=== PATIENT | female | born 1935 | race Hispanic/Latino ===

== ENCOUNTER 2016-06-16 09:29 | Day surgery (SDC) | payer MEDICARE ==
[2016-06-15 10:22] VITALS: BMI 28.7
[2016-06-15 13:50] VITALS: RESP 18
--- NOTE | 2016-06-16 10:58 | CP.SDSHP ---
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 Previous Surgical History: hallux abductovalgus repair (fursion) right 1st metatarophalangeal joint. stents, bypass - Allergies Allergies: Allergies No Known Allergies Allergy (Verified 06/15/16 10:22) - Physical Exam Vital Signs: Vital Signs 06/16/16 06/16/16 10:10 10:16 Temperature 98.5 F Pulse Rate 73 73 Respiratory 18 Rate Blood Pressure 131/72 O2 Sat by Pulse 98 Oximetry Mental Status: Alert & Oriented x3 Neuro: WNL - {Optional Preform as Required} Integument: Other (hyperkeratotic lesion submet 5 and 1 of right foot) Ortho: Other (pain to palpation of dorsal and medial aspect of right 1st MTPJ, tenderness to palpation of plantar and lateral aspect 5th metatarsal head) - Impression Impression: Patient seen and evaluated in SDS. Medical clearance in chart. NPO status confirmed. Pt is for right foot surgery today with Dr. Phillips Short Stay Discharge - Short Stay Discharge Admitting Diagnosis/Reason for Visit: M21.6X1 M21.621 M77.8 Disposition: HOME/ ROUTINE Referrals: Leland Kimbrough MD [Primary Care Provider] - Feroz Phillips MD [Staff Provider] - Additional Instructions (Diet, Activity): -Rest, ice and elevate the right foot today. -Keep dressing to foot clean, dry, intact, use cast bag over dressing for bathing/showering -Take prescribed medications as directed -PWB to heel with walker -Pt is advised to monitor for any signs of infection -Pt to follow up with Dr. Phillips at the office next week Progress Note/Discharge Note with Instructions: -VSS, neurovascular status intact right foot - (+) void, (+) appetite -dressing to right foot appears clean dry and intact -PWB to heel with rolling walker -Follow up with Dr. Phillips in office next week
--- NOTE | 2016-06-16 11:07 | CP.PCM.PN ---
Subjective - Date & Time of Evaluation Date of Evaluation: 06/16/16 Time of Evaluation: 10:45 - Subjective Subjective: 81 yo female patient seen and evaluated in [facility] this morning for pre-op evaluation. Patient is accompanied with family member. Patient says she has been having quite a bit of pain to the right foot. Says she had bunion surgery 4 years ago and now has pain due to the plate. Also has noticed a bunion formation of the 5th toe, says this is painful when ambulating and gets calluses. Rates the pain as a 5/10 at its worst when ambulating. Takes Tylenol for pain which she says helps somewhat. Has a walker at home. Denies anything to eat or drink since midnight. Denies any other problems at this time. PMH: arrythmia (has pacemaker), thyroid disease, arthritis ALL: NKDA Meds: see APR Surg Hx: right bunion surgery 4 years ago, stents, bypass FH: mother (clotting disorder), father ( from stroke) Soc Hx: lives at home with , past smoker (quite 30 years ago), denies etoh, denies illicit drug use Objective - Vital Signs/Intake and Output Vital Signs (last 24 hours): Temp Pulse Resp BP Pulse Ox 98.5 F 73 18 131/72 98 06/16/16 10:10 06/16/16 10:16 06/16/16 10:10 06/16/16 10:10 06/16/16 10:10 - Constitutional Appears: Well, Non-toxic, No Acute Distress - Extremities Exam Additional comments: Bilateral lower extremity exam: VASC- DP pulses palpable 2/4 BL, PT pulses palpable 1/4 BL, skin temp runs warm to cool bl, no pedal edema noted, diffuse varicosities noted to distal legs and lateral ankles bl NEURO- gross pedal sensation is intact BL DERM: no open wounds, there is a hyperkeratotic lesion (IPK) noted sub- metatarsal 1 (right) foot as well as plantar-lateral aspect of the 5th metatarsal head (right), no erythema, no sings infection ORTHO: tenderness to palpation to IPK sub-met 1 (right), tenderness to palpation of plantar and lateral aspect of 5th met head (right), tenderness to palpation medial and dorsal aspect of 1st MTPJ (right), 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 with rigid hammering of left 2nd digit BIOMECHANICAL EXAM: AJ: DF is restricted to 0 degrees past neutral BL STJ: 25 degrees inversion, 15 degrees eversion BL 1st ray: limited DF noted BL (0mm right, 2mm left) 1st MTPJ: absent DF, PF on right side, joint is trackbound on left side Pedal muscle strength: graded as a 5/5 in all directions GAIT EXAM: patient ambulates with walker for balance, antalgic gait noted, decreased mainor, increased angle and base of gait, lack of propulsion on right side and lack of swing phase bl, increased midstance on left side, - Neurological Exam Neurological Exam: Alert, Awake, Oriented x3 - Psychiatric Exam Psychiatric exam: Normal Affect, Normal Mood Assessment and Plan - Assessment and Plan (Free Text) Assessment: 81 yo female patient w/ painful right foot secondary to 1) painful hardware, 2) 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 Phillips -Medical clearance in chart -Pt is to be WBAT with surgical shoe and walker post-op. -She is to f/u w/ Dr. Phillips at the office next week
[2016-06-16] MEDS ORDERED: Lidocaine 1% Inj (20ml) IJ ONE ×2 (11:08→12:05)
[2016-06-16] MEDS ORDERED: ceFAZolin 1 GM in Sodium Chloride 0.9% 100 ML IVPB ONE (11:08)
[2016-06-16] MEDS ORDERED: Bupivacaine 0.5% 50 ML IJ ONE ×3 (11:08→12:22)
[2016-06-16] MEDS ORDERED: Sodium Chloride 0.9% 500 ML IV SCH (11:15)
[2016-06-16] MEDS ORDERED: Midazolam 2 MG/2 ML VIAL ONE ×3 (11:19→13:07)
[2016-06-16] MEDS ORDERED: Propofol 10 mg/ml Inj (20 ML) ONE (11:19)
[2016-06-16] MEDS ORDERED: Lidocaine 1% Inj (20ml) ONE (11:26)
[2016-06-16] MEDS ORDERED: Bupivacaine 0.25%-Epinephrine 1:200,000 (30 ml) Inj ONE (11:27)
[2016-06-16] MEDS ORDERED: Bupivacaine 0.5% Inj(30mL) ONE (11:27)
[2016-06-16] MEDS ORDERED: Etomidate 20 mg/10ml Inj IV ONE (11:44)
[2016-06-16] MEDS ORDERED: Lactated Ringer's 1,000 ML IV ONE (11:50)
[2016-06-16] MEDS ORDERED: Dexamethasone 4 mg/1 ml ONE (13:38)
[2016-06-16] MEDS ORDERED: Dexamethasone 4 mg/1 ml IM ONE (13:40)
[2016-06-16] MEDS ORDERED: Lactated Ringer's 500 ML IV ONE (14:05)
--- NOTE | 2016-06-16 14:12 | PCM.SURG1 ---
Surgeon's Initial Post Op Note - Surgeon's Notes Surgeon: Dr. Phillips Voice Network Administrator: Dr. Ana Cristina Ball Type of Anesthesia: MAC, Local Anesthesia Administered By: Dr. Bah Pre-Operative Diagnosis: Right foot painful hardware, painful exostosis of 1st metatarsal head, tailor's bunion deformity, and painful scar tissue to plantar aspect of 1st met head Operative Findings: Materials: 2.0 x 10mm cortical screws. 3-0 Vicryl. 4-0 Monocryl Post-Operative Diagnosis: same Operation Performed: Right foot removal of painful hardware, 5th metatarsal osteotomy with screws, resection of 1st metatarsal head, excision of painful scar tissue from plantar 1st met head Specimen/Specimens Removed: 6 x screws and 1 x plate from right 1st MTPJ Estimated Blood Loss: EBL {In ML}: 3 Blood Products Given: N/A Drains Used: No Drains Post-Op Condition: Good Date of Surgery/Procedure: 06/16/16 Time of Surgery/Procedure: 11:40
[2016-06-16] MEDS ORDERED: Oxycodone/Acetaminophen 5/325 mg Tab PO PRN ×2 (14:18)
--- NOTE | 2016-06-16 15:11 | RAD ---
PROCEDURE: Right Foot Radiographs. For HISTORY: Right foot surgery COMPARISON: None. FINDINGS: BONES: There is fusion of the 1st MTP joint and screw tracks in the 1st metatarsal and proximal phalanx of the great toe. There are 2 metallic screws in the 5th metatarsal and an old fracture deformity. There is no acute fracture or bone destruction. There is a prominent dorsal calcaneal spur. JOINTS: The remaining joint spaces are preserved. SOFT TISSUES: There is moderate dorsal soft tissue swelling OTHER FINDINGS: None. IMPRESSION: Old fracture deformity in the 5th metatarsal and 2 metallic screws in the 5th metatarsal. Moderate dorsal soft tissue swelling.
[2016-06-16 17:48] VITALS: BP 117/63; PULSE 65; TEMP 98.4; O2SAT 96
--- NOTE | 2016-06-18 21:04 | OP ---
PROCEDURE DATE: 06/16/2016 SURGEON: Dr. Phillips COAL DUMPING EQUIPMENT OPERATOR: Dr. Ball, PGY-1 STUDENT DEVELOPMENT ADVISOR: Dr. Bah ANESTHESIA: General Mask and local. PREOPERATIVE DIAGNOSES: 1. Right foot painful hardware. 2. Right foot painful scar tissue to plantar aspect of first metatarsal head. 3. Right foot painful plantar exostosis of first metatarsal head. 4. Right foot painful tailor's bunion. POSTOPERATIVE DIAGNOSES: 1. Right foot painful hardware. 2. Right foot painful scar tissue to plantar aspect of first metatarsal head. 3. Right foot painful plantar exostosis of first metatarsal head. 4. Right foot painful tailor's bunion. NAME OF PROCEDURE: 1. Right foot removal of painful hardware. 2. Right foot excision of scar tissue from plantar aspect of first metatarsal head. 3. Right foot resection of first metatarsal head. 4. Right foot fifth metatarsal Eyad osteotomy. INDICATIONS: The patient is a 81-year-old female patient with the above diagnosis. The patient has exhausted conservative treatment at this time and now requests surgical intervention. The patient signed the consent after careful explanation of risks, benefits, complication and alternatives for surgical procedure. No guarantees were given nor implied. One gram of Ancef IV was given to the patient half hour prior to the procedure. N.p.o. status was confirmed prior to taking patient to the OR. PREPARATION: The patient was brought to the operating room table and placed on the operating room table in supine position. A well-padded pneumatic ankle tourniquet was placed to patient's right ankle. After induction of general anesthesia, the patient received a total of 19 mL of 1:1 mixture of 1% lidocaine plain and 0.5% Marcaine plain in a local block fashion to the right ankle. Once local anesthesia was achieved, the right lower extremity was then prepped and draped in usual sterile manner. Esmarch was utilized to exsanguinate the patient's right foot. Pneumatic ankle tourniquet was then inflated to 250 mmHg and the procedure began. PROCEDURE: 1. Right foot removal of painful hardware. Attention was directed to the dorsal aspect of the right first MTPJ. Exact location of painful metal plate was identified by palpation of the prominent plate. An approximately 5 cm longitudinal incision was made along the length of the plate with a #15 blade. The incision was deepened through the subcutaneous tissues using sharp and blunt dissection all the way down to the plate and bone. Care was taken to identify and retract all vital neurovascular structures. The plate and the screws were visualized through the incision. Using a proper Arthrex cannulated star shaped screwdriver, the screws were then removed from the right first MTPJ. The plate was then removed from the right first MTPJ utilizing a Auxvasse elevator and a hemostat. The wound was then flushed with a copious amount of sterile normal saline solution. The subcutaneous tissue of the incision site was then reapproximated and coapted utilizing #3-0 Vicryl. The skin was then reapproximated and coapted using 4-0 Monocryl with running suture technique. 2. Right foot excision of scar tissue from plantar aspect of first metatarsal head. Attention was then directed to the plantar aspect of the right first metatarsal head where there is a hyperkeratotic lesion measuring about 0.5 cm in diameter. At this point, a #15 blade was used to make elliptical incision on the margin of the lesion plantar. Using a brown adson, the lesion was lifted and deeper incision was made using the blade. This hyperkeratotic lesion was then removed from the plantar aspect of the right foot first metatarsal head and was passed from the operative field to the sterile Pearl stand. 3. Right foot resection of first metatarsal head. Once the excision of the scar tissue was done, prominent exostosis of the plantar lateral aspect of the right first metatarsal head was palpated through the plantar opening where the scar tissue was removed from. The incision was deepened through the subcutaneous tissues using sharp and blunt dissection all the way down to the bone. Care was taken to identify and retract all vital neurovascular structures. Once the prominent exostosis of right first metatarsal head was exposed through the incision, a rongeur was used to snip off the prominent exostosis from the plantar lateral aspect of the first metatarsal head. The resected bony exostosis was then passed from the operative field to sterile Pearl stand. The wound was then flushed with copious amount of sterile normal saline solution. The subcutaneous tissue of the incision site was then reapproximated and coapted utilizing 3-0 Vicryl. The skin was then reapproximated and coapted utilizing 4-0 Prolene with simple suture technique. 4. Right foot fifth metatarsal Eyad osteotomy. Attention was then directed to the dorsal aspect of the fifth metatarsal of the right foot. Utilizing a #15 blade, approximately a 5 cm longitudinal incision was made on the dorsal aspect of the right foot fifth metatarsal. The incision was deepened through the subcutaneous tissue with care being taken to identify and retract all vital neurovascular structures. All bleeders were cauterized and ligated as necessary. At this time, a linear periosteal and capsular incision was made overlying the fifth metatarsal of the right foot. The periosteal and capsular structures were then carefully dissected free of their osseous attachments and reflected medially and laterally, thus exposing the head and shaft of the fifth metatarsal. Once the head of the right fifth metatarsal head was exposed, it was noted that the lateral aspect of the fifth metatarsal was already resected from a previous surgery. Next, utilizing a sagittal saw, a dorsal distal to plantar proximal osteotomy was created in the distal one-half of the fifth metatarsal diaphysis. Upon completion of the osteotomy, the capital fragment was distracted and shifted medially into a corrected position and held in place utilizing a bone clamp. Next, two 2.0 x 10 mm cortical screws were inserted into their places across the osteotomy site with excellent compression noted. The remaining bone clamp was removed. Attention was then directed to the remaining lateral bone shelf which was resected utilizing the sagittal bone saw. All rough edges were smoothed down with a hand rasp. The wound was then flushed with copious amounts of sterile normal saline. The periosteal and capsular structures were reapproximated and coapted utilizing 3-0 Vicryl. The subcuticular tissues were then reapproximated and coapted utilizing 4-0 Vicryl. The subcuticular was then reapproximated and coapted using 4-0 Monocryl in a running suture technique. Right foot surgical sites were injected with total of 10 mL of 0.5% Marcaine plain and 3 mL of dexamethasone phosphate. Right foot was dressed with Steri- Strips, DSD and Tensoplast. Pneumatic ankle tourniquet was then deflated and prompt hyperemic response was noted to all digits of the right foot. The attending was present the entire case. POSTOPERATIVE CONDITION: The patient tolerated the anesthesia and procedure well and was escorted to the recovery room with vital signs stable and neurovascular status intact to the right foot. The patient will be nonweightbearing in surgical shoe with crutches and follow up with Dr. Phillips. ALIREZA BALL DPM Feroz Phillips DPM cc: [id number] TT: 06/18/2016 21:03:37 sn MTDD
== END 2016-06-16 18:11 | disposition home or self-care (01) ==
LOC: H.OPSURG 09:29
PROVIDERS: ATTEND Podiatrist
DX: M21.6X1 Other acquired deformities of right foot (principal); M21.621 Bunionette of right foot; M77.8 Other enthesopathies, not elsewhere classified; I48.91 Unspecified atrial fibrillation; I25.10 Atherosclerotic heart disease of native coronary artery without angina pectoris; I50.9 Heart failure, unspecified; E78.5 Hyperlipidemia, unspecified; I11.0 Hypertensive heart disease with heart failure; I25.2 Old myocardial infarction; K21.9 Gastro-esophageal reflux disease without esophagitis; F41.9 Anxiety disorder, unspecified
CPT/HCPCS: 20680; 28173; 73620; 88304; 97116; 97161; C1713; G8978; G8979; G8980; J0690; J1100; J2001; J2250; J2704; J3010; J7030; J7040; J7120

== ENCOUNTER 2016-12-19 09:27 | Inpatient (IN) | payer MEDICARE ==
[2016-12-19 09:34] VITALS: BMI 27.1
--- NOTE | 2016-12-19 10:45 | ED PDOC ---
HPI: General Adult Time Seen by Provider: 12/19/16 10:23 Chief Complaint (Nursing): Lower Extremity Problem/Injury Chief Complaint (Provider): ankle swelling History Per: Patient Additional Complaint(s): 81-year-old female with history of heart disease presents with swelling in ankles that started about one month ago with intermittent shortness of breath. Patient takes 40 mg Lasix daily but still feels short of breath from time to time. Patient was sent to the emergency room by her clinical psychologist Dr. Dickinson. Denies any chest pain, cough, fever or chills. No recent travel. Past Medical History Reviewed: Historical Data, Nursing Documentation, Vital Signs Vital Signs: Last Vital Signs Temp 98.1 F 12/19/16 12:50 Pulse 84 12/19/16 12:50 Resp 18 12/19/16 12:50 BP 104/83 12/19/16 12:50 Pulse Ox 95 12/19/16 12:32 - Medical History PMH: Anxiety, Arthritis, CHF, HTN, Hypercholesterolemia, Hypothyroidism, Osteoporosis - Surgical History Surgical History: CABG (CARDIAC [id number]), Pacemaker (2011) - Family History Family History: States: No Known Family Hx - Social History Current smoker - smoking cessation education provided: No Ex-Smoker (has not smoked in the last 12 months): Yes (quit several years ago) Alcohol: None Drugs: Denies - Home Medications Home Medications: Ambulatory Orders Medication Instructions Recorded ALPRAZolam [Xanax] 0.25 mg PO HS 06/16/16 Aspirin [Ecotrin] 325 mg PO DAILY 06/16/16 Cholecalciferol (Vitamin D3) 2,000 unit PO DAILY 06/16/16 [Vitamin D3] Furosemide [Lasix] 40 mg PO DAILY 06/16/16 Levothyroxine [Synthroid] 75 mcg PO DAILY 06/16/16 PARoxetine [Paxil] 10 mg PO DAILY 06/16/16 Rivaroxaban [Xarelto] 20 mg PO QPM 06/16/16 Valsartan [Diovan] 160 mg PO DAILY 06/16/16 Atorvastatin [Lipitor] 20 mg PO HS 12/19/16 Isosorbide Mononitrate [Ismo] 20 mg PO DAILY 12/19/16 Metoprolol Succinate [Toprol XL] 50 mg PO DAILY 12/19/16 Spironolactone [Aldactone] 50 mg PO DAILY 12/19/16 - Allergies Allergies/Adverse Reactions: Allergies Allergy/AdvReac Type Severity Reaction Status Date / Time No Known Allergies Allergy Verified 06/15/16 10:22 Review of Systems ROS Statement: Except As Marked, All Systems Reviewed And Found Negative Constitutional: Negative for: Fever, Chills, Weakness Cardiovascular: Positive for: Edema (bilateral ankles). Negative for: Chest Pain, Light Headedness Respiratory: Positive for: Shortness of Breath. Negative for: Cough Gastrointestinal: Negative for: Nausea, Vomiting, Abdominal Pain Neurological: Negative for: Headache, Dizziness Physical Exam - Reviewed Nursing Documentation Reviewed: Yes Vital Signs Reviewed: Yes - Physical Exam Appears: Positive for: Well, Non-toxic, No Acute Distress Skin: Negative for: Rash Eye Exam: Positive for: Normal appearance, EOMI, PERRL Cardiovascular/Chest: Positive for: Regular Rate, Rhythm Respiratory: Positive for: Normal Breath Sounds. Negative for: Respiratory Distress Back: Positive for: Normal Inspection Extremity: Positive for: Pedal Edema (1+ pitting edema to bilateral ankles) Neurologic/Psych: Positive for: Alert, Oriented - Laboratory Results Result Diagrams: 12/19/16 10:50 12/19/16 10:50 - ECG O2 Sat by Pulse Oximetry: 95 Pulse Ox Interpretation: Normal - Other Rad Portable chest X-Ray: Interpreted by Me, Viewed By Me X-Ray Interpretation: cardiomegaly and vascular congestion Duplex lower extremities bilaterally X-Ray: Read By Radiologist X-Ray Interpretation: no DVT Medical Decision Making Medical Decision Makin81 year old female with swelling to both ankles and shortness of breath x 1 month Plan: CBC CMP Trop BNP UA IV insertion Bedside chest EKG I spoke with Dr. Dickinson, he states to order dopplers of both legs to rule out DVT and admit patient. Patient is aware of and agrees with admission. K is low at 3.3, 40 meq of Kdur given orally. INITIAL WEIGHT IN ED: 145.8 LBS Disposition - Clinical Impression Clinical Impression: Pedal edema, CHF (congestive heart failure) - Patient ED Disposition Is Patient to be Admitted: Yes - Disposition Disposition Time: 13:15 Condition: FAIR - Pt Status Changed To: Hospital Disposition Of: Inpatient - Admit Certification Admit to Inpatient:: After my assessment, the patient will require hospitalization for at least two midnights. This is because of the severity of symptoms shown, intensity of services needed, and/or the medical risk in this patient being treated as an outpatient. - POA Present On Arrival: None Results - Lab Results Lab Results: 12/19/16 12/19/16 12/19/16 10:50 10:50 10:50 WBC 6.4 RBC 4.29 Hgb 10.9 L Hct 32.8 L MCV 76.6 L MCH 25.4 L MCHC 33.1 RDW 17.4 H Plt Count 177 MPV 9.5 Neut % (Auto) 74.5 Lymph % (Auto) 16.3 L [place] % (Auto) 8.3 Eos % (Auto) 0.6 Baso % (Auto) 0.3 Neut # 4.8 Lymph # 1.0 [place] # 0.5 Eos # 0.0 Baso # 0.0 PT 24.0 H INR 2.1 H APTT 32.2 Sodium 140 Potassium 3.3 L Chloride 101 Carbon Dioxide 27 Anion Gap 15 BUN 26 H Creatinine 1.0 Est GFR ( Amer) > 60 Est GFR (Non-Af Amer) 53 Random Glucose 130 H Calcium 8.9 Total Bilirubin 1.1 AST 43 H ALT 54 H Alkaline Phosphatase 117 Troponin I 0.0300 NT-Pro-B Natriuret Pep 11478 H Total Protein 7.6 Albumin 4.2 Globulin 3.4 Albumin/Globulin Ratio 1.3
[2016-12-19 10:56] LABS: BASO % 0.3 % (0.0-2.0); EOS % 0.6 % (0.0-4.0); HEMATOCRIT 32.8 % (34.0-47.0); LYMPH % 16.3 % (20.0-40.0); MEAN CELL VOLUME 76.6 fl (81.0-99.0); MEAN CORPUSCULAR HEMOGLOBIN 25.4 pg (27.0-31.0); MEAN CORPUSCULAR HGB CONC 33.1 g/dL (33.0-37.0); MEAN PLATELET VOLUME 9.5 fl (7.2-11.7); MONO # 0.5 K/uL (0.0-0.8); MONO % 8.3 % (0.0-10.0); NEUT # 4.8 K/uL (1.8-7.0); NEUT % 74.5 % (50.0-75.0); NRBC % 0.1 % (0.0-0.0); RED CELL DISTRIBUTION WIDTH 17.4 % (11.5-14.5); WHITE BLOOD COUNT 6.4 K/uL (4.8-10.8)
--- NOTE | 2016-12-19 11:04 | RAD ---
HISTORY: swelling in ankles COMPARISON: 06/15/2016. FINDINGS: LUNGS: The lungs are well inflated. There is mild pulmonary venous congestion. No focal consolidation. PLEURA: No significant pleural effusion identified, no pneumothorax apparent. CARDIOVASCULAR: There is mild cardiomegaly. There is stable position of left-sided dual lead transvenous permanent pacing device. Status post CABG. OSSEOUS STRUCTURES: No significant abnormalities. VISUALIZED UPPER ABDOMEN: Normal. OTHER FINDINGS: None. IMPRESSION: Mild cardiomegaly and pulmonary venous congestion. No acute findings.
[2016-12-19 11:09] LABS: ALB/GLOB RATIO 1.3 (1.0-2.1); ALKALINE PHOSPHATASE 117 U/L (38-126); ALT/SGPT 54 U/L (9-52); AST/SGOT 43 U/L (14-36); BILIRUBIN,TOTAL 1.1 mg/dl (0.2-1.3); BLOOD UREA NITROGEN 26 mg/dl (7-17); CALCIUM 8.9 mg/dL (8.4-10.2); CARBON DIOXIDE 27 mmol/L (22-30); CHLORIDE 101 mmol/L (98-107); GFR AFRICAN-AMERICAN > 60; GLUCOSE,RANDOM 130 mg/dL (65-105); POTASSIUM 3.3 MMOL/L (3.6-5.0); SODIUM 140 mmol/l (132-148); TOTAL PROTEIN 7.6 G/DL (6.3-8.2)
[2016-12-19 11:19] LABS: PARTIAL THROMBOPLASTIN TIME 32.2 Seconds (25.6-37.1)
[2016-12-19] MEDS ORDERED: Potassium Chloride 20 mEq ER Tab PO STA (11:19)
[2016-12-19] MEDS ORDERED: Potassium Chloride 20 mEq ER Tab PO ONE (11:33)
--- NOTE | 2016-12-19 11:53 | CARD ---
APPROVED REPORT EKG Measurement Heart [id number] <Conclusion> Wide QRS rhythm with frequent ventricular-paced complexes and fusion complexes Right bundle branch block Possible Anterolateral infarct, age undetermined T wave abnormality, consider inferior ischemia Abnormal ECG
[2016-12-19 12:15] LABS: RBC URINE < 1 /hpf (0-3); URINE BILIRUBIN NEGATIVE (NEGATIVE); URINE BLOOD SMALL (NEGATIVE); URINE COLOR STRAW (YELLOW); URINE GLUCOSE (UA) NEG (Normal); URINE KETONE NEGATIVE (NEGATIVE); URINE LEUKOCYTE ESTERASE NEG Leu/uL (Negative); URINE PROTEIN NEGATIVE (NEGATIVE); URINE UROBILINOGEN 0.2-1.0 mg/dL (0.2-1.0)
--- NOTE | 2016-12-19 12:32 | US ---
PROCEDURE: Bilateral lower extremity venous duplex Doppler. HISTORY: swelling to both legs COMPARISON: None available. TECHNIQUE: Bilateral common femoral, superficial femoral, popliteal and posterior tibial veins were evaluated. Flow was assessed with color Doppler, compressibility, assessment of phasic flow and augmentation response. FINDINGS: COMMON FEMORAL VEIN: Right CFV: Unremarkable. Left CFV: Unremarkable. SUPERFICIAL FEMORAL VEIN: Right SFV: Unremarkable. Left SFV: Unremarkable. POPLITEAL VEIN: Right Popliteal: Unremarkable. Left Popliteal: Unremarkable. POSTERIOR TIBIAL VEIN: Right PTV: Unremarkable. Left PTV: Unremarkable. OTHER FINDINGS: None. IMPRESSION: No evidence of deep venous thrombosis.
--- NOTE | 2016-12-19 12:57 | CP.PCM.HP ---
History of Present Illness - History of Present Illness History of Present Illness: this 81-year-old female came to the emergency room after multiple attempts to relieve her of shortness of breath and pedal edema at home by using oral furosemide and Aldactone were unsuccessful. The patient has a long medical history which consists of coronary artery disease causing a myocardial infarction in early 80s. The patient subsequently underwent coronary bypass graft surgery and also has had stenting procedures approximately 5-6 years back. She has had severe left ventricular systolic dysfunction and has had an AICD implanted more than 6 years back. The patient subsequently developed atrial fibrillation couple of years back and had had significant congestive cardiac failure treated with oral Diuril takes along with an ROMELIA inhibitor and a beta carole. She has never been a diabetic. The patient has undergone a cardioversion approximately 2 months back so as to improve her cardiac output and relieve symptoms of congestive cardiac failure. She has had biventricular pacing. Subsequently she reverted to atrial fibrillation and couple of weeks back she underwent AV node ablation and now is dependent on biventricular VVIR pacing. She recently developed a mild shortness of breath and a persistent pedal edema which was not relieved in spite of doubling her furosemide dose and adding Aldactone. In fact her weight went up by a pound and the patient finally decided to come to the emergency room. She denies any orthopnea. She denies any salt loading. On physical examination this is an elderly female who is quite alert awake and coherent. Afebrile with a pulse rate of 88 bpm and regular and cardiac rehabilitation program director shows VVI paced rhythm.her blood pressure was 124/72 mmHg. Her jugular venous pressure was mildly elevated and there was pitting edema particularly over the right lower extremity from which venous harvesting had been done in the past. There was a mild pitting edema over the left lower extremity as well. her extremities were warm and the nailbeds were pink. There was no central or peripheral cyanosis.Scar of sternotomy was evident. The apex was palpable in the 60s slightly heaving in character. First and second heart sounds were normal with a brief apical systolic murmur of mitral regurgitation. There were few basal rales. Electro-cardiogram showed presence of atrial fibrillation with a VVI paced rhythm. Chest x-ray showed cardiomegaly with mild pulmonary congestion. Ultrasound of lower extremities failed to show any evidence of DVT. Her lab data showed microcytic hypochromic anemia with a hemoglobin of 10.9 g and 32.8% respectively. Her WBC count and platelet counts are within normal limits. Her BUN and creatinine were 26 and 1 mg percent respectively with a potassium level of 3.3 mg/L. Her pro BNP was markedly elevated troponin was normal. Impression: congestive cardiac failure which is left ventricular systolic and acute on chronic. Coronary artery disease with prior myocardial infarcts. Status post coronary bypass graft surgery. Chronic atrial fibrillation. Hypertension and dyslipidemia. Status post AV ablation with AICD implant and biventricular pacing. The patient has received intravenous furosemide in an attempt to diurese her. Present on Admission - Present on Admission Any Indicators Present on Admission: No Past Patient History - Infectious Disease Hx of Infectious Diseases: None - Past Medical History & Family History Past Medical History?: Yes - Past Social History Alcohol: None Drugs: Denies - CARDIAC Hx Congestive Heart Failure: Yes Hx Hypercholesterolemia: Yes Hx Hypertension: Yes Hx Pacemaker: Yes (2011) - PULMONARY Hx Respiratory Disorders: No - NEUROLOGICAL Hx Neurological Disorder: No - HEENT Hx HEENT Problems: No - RENAL Hx Chronic Kidney Disease: No - ENDOCRINE/METABOLIC Hx Hypothyroidism: Yes - HEMATOLOGICAL/ONCOLOGICAL Hx Blood Disorders: Yes Hx Bruising: Yes - INTEGUMENTARY Hx Dermatological Problems: No - MUSCULOSKELETAL/RHEUMATOLOGICAL Hx Arthritis: Yes Hx Osteoporosis: Yes - GASTROINTESTINAL Hx Gastrointestinal Disorders: Yes Hx Gastroesophageal Reflux: Yes (HEARTBURN) - GENITOURINARY/GYNECOLOGICAL Hx Genitourinary Disorders: No - PSYCHIATRIC Hx Anxiety: Yes - SURGICAL HISTORY Hx Coronary Artery Bypass Graft: Yes (CARDIAC [id number]) - ANESTHESIA Hx Anesthesia: Yes Hx Anesthesia Reactions: No Hx Malignant Hyperthermia: No Meds Allergies/Adverse Reactions: Allergies Allergy/AdvReac Type Severity Reaction Status Date / Time No Known Allergies Allergy Verified 06/15/16 10:22 Results - Vital Signs Recent Vital Signs: Last Vital Signs Temp 98.1 F 12/19/16 12:26 Pulse 84 12/19/16 12:26 Resp 18 12/19/16 12:26 BP 104/83 12/19/16 12:26 Pulse Ox 95 12/19/16 12:32 - Labs Result Diagrams: 12/19/16 10:50 12/19/16 10:50 Labs: Laboratory Results - last 24 hr 12/19/16 12/19/16 12/19/16 10:50 10:50 10:50 WBC 6.4 RBC 4.29 Hgb 10.9 L Hct 32.8 L MCV 76.6 L MCH 25.4 L MCHC 33.1 RDW 17.4 H Plt Count 177 MPV 9.5 Neut % (Auto) 74.5 Lymph % (Auto) 16.3 L [place] % (Auto) 8.3 Eos % (Auto) 0.6 Baso % (Auto) 0.3 Neut # 4.8 Lymph # 1.0 [place] # 0.5 Eos # 0.0 Baso # 0.0 PT 24.0 H INR 2.1 H APTT 32.2 Sodium 140 Potassium 3.3 L Chloride 101 Carbon Dioxide 27 Anion Gap 15 BUN 26 H Creatinine 1.0 Est GFR ( Amer) > 60 Est GFR (Non-Af Amer) 53 Random Glucose 130 H Calcium 8.9 Total Bilirubin 1.1 AST 43 H ALT 54 H Alkaline Phosphatase 117 Troponin I 0.0300 NT-Pro-B Natriuret Pep 58064 H Total Protein 7.6 Albumin 4.2 Globulin 3.4 Albumin/Globulin Ratio 1.3 Urine Color Urine Clarity Urine pH Ur Specific [place] Urine Protein Urine Glucose (UA) Urine Ketones Urine Blood Urine Nitrate Urine Bilirubin Urine Urobilinogen Ur Leukocyte Esterase Urine RBC (Auto) 12/19/16 11:57 WBC RBC Hgb Hct MCV MCH MCHC RDW Plt Count MPV Neut % (Auto) Lymph % (Auto) [place] % (Auto) Eos % (Auto) Baso % (Auto) Neut # Lymph # [place] # Eos # Baso # PT INR APTT Sodium Potassium Chloride Carbon Dioxide Anion Gap BUN Creatinine Est GFR ( Amer) Est GFR (Non-Af Amer) Random Glucose Calcium Total Bilirubin AST ALT Alkaline Phosphatase Troponin I NT-Pro-B Natriuret Pep Total Protein Albumin Globulin Albumin/Globulin Ratio Urine Color Straw Urine Clarity Clear Urine pH 6.0 Ur Specific [place] 1.006 Urine Protein Negative Urine Glucose (UA) Neg Urine Ketones Negative Urine Blood Small Urine Nitrate Negative Urine Bilirubin Negative Urine Urobilinogen 0.2-1.0 Ur Leukocyte Esterase Neg Urine RBC (Auto) < 1
[2016-12-20 05:45] LABS: BLOOD UREA NITROGEN 26 mg/dl (7-17); CALCIUM 9.1 mg/dL (8.4-10.2); CARBON DIOXIDE 33 mmol/L (22-30); CHLORIDE 100 mmol/L (98-107); GFR AFRICAN-AMERICAN > 60; GLUCOSE,RANDOM 102 mg/dL (65-105); POTASSIUM 3.7 MMOL/L (3.6-5.0); SODIUM 141 mmol/l (132-148)
[2016-12-20] MEDS ORDERED: Metoprolol Succinate 50 mg XL Tab PO SCH (09:00)
[2016-12-20] MEDS ORDERED: Levothyroxine 75 MCG TAB PO SCH (09:00)
[2016-12-20] MEDS ORDERED: Aspirin 325 mg EC Tablets PO SCH (09:00)
--- NOTE | 2016-12-20 09:31 | CP.PCM.PN ---
Subjective - Date & Time of Evaluation Date of Evaluation: 12/20/16 Time of Evaluation: 08:00 - Subjective Subjective: Diuresed profusely with IV Lasix and is free of dyspnoea and pedal oedema VVI paced rhythm on telemetry BP 116/74 mm Hg JVP flat No gallop, no rales Today's labs: K+ normal BUN/Creatinin stable To go home today Objective - Vital Signs/Intake and Output Vital Signs (last 24 hours): Temp Pulse Resp BP Pulse Ox 98.0 F 84 18 115/70 98 12/20/16 08:16 12/20/16 08:16 12/20/16 08:16 12/20/16 08:16 12/20/16 08:16 - Medications Medications: Current Medications Alprazolam (Xanax) 0.25 mg PO HS [facility] Stop: 12/26/16 22:01 Last Admin: 12/19/16 21:29 Dose: 0.25 mg Aspirin (Ecotrin) 325 mg PO DAILY [facility] Atorvastatin Calcium (Lipitor) 20 mg PO HS [facility] Last Admin: 12/19/16 21:29 Dose: 20 mg Cholecalciferol (Vitamin D) 2,000 iu PO DAILY [facility] Isosorbide Mononitrate (Imdur Er) 30 mg PO DAILY [facility] Levothyroxine Sodium (Synthroid) 75 mcg PO DAILY [facility] Metoprolol Succinate (Toprol Xl) 50 mg PO DAILY [facility] Paroxetine HCl (Paxil) 10 mg PO DAILY [facility] Rivaroxaban (Xarelto) 15 mg PO QPM [facility] PRN Reason: Protocol Last Admin: 12/19/16 17:29 Dose: 15 mg Spironolactone (Aldactone) 50 mg PO DAILY [facility] Valsartan (Diovan) 160 mg PO DAILY [facility] - Labs Labs: 12/19/16 10:50 12/20/16 04:20 PT 24.0 Seconds (9.8-13.1) H 12/19/16 10:50 INR 2.1 (0.9-1.2) H 12/19/16 10:50 APTT 32.2 Seconds (25.6-37.1) 12/19/16 10:50
[2016-12-20 12:56] VITALS: BP 103/62; PULSE 89; RESP 20; TEMP 97.5; O2SAT 94
--- NOTE | 2016-12-20 13:56 | PQF GENQUE ---
Dr. Dickinson, Is there an associated dx. to go along with the following lab value :Potassium level:3.3->3.7 OR: Disagree K-Dur This form is a permanent part of the medical record Clarification of your documentation is requested to better reflect the severity of illness and intensity of treatment of your patient. Indicators present [] Specify: [] [] Specify: [] [] Specify: [] [] Specify: [] Location in the medical record that reflects the above clinical findings: [] Treatment Provided: [] PHYSICIAN'S RESPONSE Yes. Patient has hypokalemia. Based on your medical judgment of the clinical indicators outlined above please clarify the following: [] Practitioner response [] If unable to determine, please check the box, sign and date. Present On Admission (POA) Indicator: [] Present at the time of admission [] Not present at the time of admission [] Clinically Undetermined In responding to this query, please exercise your independent professional judgment. The fact that a question is asked does not imply that any particular answer is desired or expected. Thank you for your clarification on this documentation. If you have any questions please call. * Thank you, Marilu Arevalo RN ext. #[phone]: Rocio Echevarria RN MTDD
== END 2016-12-20 13:34 | disposition home health service (06) | DRG 293 ==
LOC: SUPCPDRO 09:27 → H.ER 09:27 → H.ERHOLD 11:17 → H.TEL 13:05
PROVIDERS: ADMIT Internal Medicine Cardiovascular Disease; ATTEND Internal Medicine Cardiovascular Disease
DX: I11.0 Hypertensive heart disease with heart failure (principal); I50.23 Acute on chronic systolic (congestive) heart failure; I48.2 Chronic atrial fibrillation; Z95.1 Presence of aortocoronary bypass graft; E87.6 Hypokalemia; I25.10 Atherosclerotic heart disease of native coronary artery without angina pectoris; D50.9 Iron deficiency anemia, unspecified; E03.9 Hypothyroidism, unspecified; E78.5 Hyperlipidemia, unspecified; K21.9 Gastro-esophageal reflux disease without esophagitis; M81.0 Age-related osteoporosis without current pathological fracture; F41.9 Anxiety disorder, unspecified; I25.2 Old myocardial infarction; Z95.810 Presence of automatic (implantable) cardiac defibrillator; Z79.82 Long term (current) use of aspirin; Z87.891 Personal history of nicotine dependence

== ENCOUNTER 2017-04-12 18:35 | Inpatient (IN) | payer MEDICARE ==
[2017-04-12] MEDS ORDERED: Sodium Chloride 0.9% 1,000 ML IV STA ×2 (19:46→21:01)
[2017-04-12 20:28] LABS: BASO % 0.8 % (0.0-2.0); EOS % 0.1 % (0.0-4.0); LYMPH % 21.4 % (20.0-40.0); MEAN CELL VOLUME 75.8 fl (81.0-99.0); MEAN CORPUSCULAR HGB CONC 30.3 g/dL (33.0-37.0); MEAN PLATELET VOLUME 10.3 fl (7.2-11.7); MONO # 0.5 K/uL (0.0-0.8); MONO % 9.8 % (0.0-10.0); NEUT # 3.3 K/uL (1.8-7.0); NEUT % 67.9 % (50.0-75.0); NRBC % 0.7 % (0.0-0.0); RBC 4.34 Mil/uL (3.80-5.20); RED CELL DISTRIBUTION WIDTH 18.8 % (11.5-14.5); WHITE BLOOD COUNT 4.9 K/uL (4.8-10.8)
[2017-04-12 20:30] LABS: ALB/GLOB RATIO 1.1 (1.0-2.1); ALBUMIN 3.9 g/dL (3.5-5.0); CALCIUM 9.1 mg/dL (8.4-10.2)
[2017-04-12 21:01] LABS: INR 4.1 (0.9-1.2); PARTIAL THROMBOPLASTIN TIME 31.4 Seconds (25.6-37.1)
[2017-04-12 21:02] LABS: PROTHROMBIN TIME 47.1 Seconds (9.8-13.1)
--- NOTE | 2017-04-12 21:14 | ED PDOC ---
HPI: General Adult Time Seen by Provider: 04/12/17 19:19 Chief Complaint (Nursing): Weakness/Neurological Deficit Chief Complaint (Provider): generalized weakness, poor appetite History Per: Patient, Family History/Exam Limitations: no limitations Onset/Duration Of Symptoms: Days (5-6), Gradual Current Symptoms Are (Timing): Still Present Severity: Severe Recently: Treated By A Physician, Hospitalized Additional Complaint(s): 82yo female presents w daughter who states she has become progressively weaker with very poor PO intake, epigastric discomfort and dysphagia. Was admitted to [facility] recently and had EGD showing "stomach ulcer" per daughter, started on panprotozole, now back on xarelto and ASA. Due for a pacemaker change to biventricular soon, in outpatient labs had electrolyte derangement. Denies dark or tarry stools. Denies hematemesis. No fever, cough, sore throat or flu like symptoms. Past Medical History Reviewed: Historical Data, Nursing Documentation, Vital Signs Vital Signs: Last Vital Signs Temp 97.6 F 04/12/17 19:00 Pulse 110 H 04/12/17 19:00 Resp 16 04/12/17 19:00 BP 111/53 L 04/12/17 20:59 Pulse Ox 98 04/12/17 19:00 - Medical History PMH: Anxiety, Arthritis, CHF, HTN, Hypercholesterolemia, Hypothyroidism, Osteoporosis Denies: Chronic Kidney Disease - Surgical History Surgical History: CABG (CARDIAC [id number]), Pacemaker (2011) Other surgeries: breast fibroma - Family History Family History: States: Unknown Family Hx - Living Arrangements Living Arrangements: With Family - Social History Current smoker - smoking cessation education provided: No - Home Medications Home Medications: Ambulatory Orders Medication Instructions Recorded ALPRAZolam [Xanax] 0.25 mg PO HS 06/16/16 Levothyroxine [Synthroid] 75 mcg PO DAILY 06/16/16 Atorvastatin [Lipitor] 20 mg PO HS 12/19/16 - Allergies Allergies/Adverse Reactions: Allergies Allergy/AdvReac Type Severity Reaction Status Date / Time No Known Allergies Allergy Verified 06/15/16 10:22 Review of Systems Constitutional: Positive for: Weakness, Malaise. Negative for: Fever, Chills ENT: Negative for: Nose Discharge, Throat Pain Cardiovascular: Negative for: Palpitations Respiratory: Negative for: Cough, Shortness of Breath Gastrointestinal: Positive for: Nausea, Vomiting, Abdominal Pain (epigastric) Musculoskeletal: Negative for: Neck Pain, Arm Pain, Back Pain, Leg Pain Skin: Negative for: Rash, Lesions, Jaundice Neurological: Positive for: Weakness, Dizziness. Negative for: Numbness, Headache Psych: Positive for: Anxiety. Negative for: Depression Physical Exam - Reviewed Nursing Documentation Reviewed: Yes Vital Signs Reviewed: Yes - Physical Exam Appears: Positive for: Non-toxic (dry) Head Exam: Positive for: ATRAUMATIC, NORMAL INSPECTION, NORMOCEPHALIC Skin: Positive for: Warm, Pallor Eye Exam: Positive for: EOMI, Normal appearance, PERRL ENT: Positive for: Normal ENT Inspection Neck: Positive for: Normal, Painless ROM Cardiovascular/Chest: Positive for: Regular Rate, Rhythm Respiratory: Positive for: Normal Breath Sounds. Negative for: Respiratory Distress Pulses-Radial (L): 2+ Pulses-Radial (R): 2+ Gastrointestinal/Abdominal: Positive for: Bowel Sounds, Soft. Negative for: Tenderness Back: Positive for: Normal Inspection Extremity: Positive for: Normal ROM. Negative for: Calf Tenderness, Swelling Neurologic/Psych: Positive for: Alert, Oriented. Negative for: Motor/Sensory Deficits, Aphasia, Facial Droop - Laboratory Results Result Diagrams: 04/12/17 20:10 04/12/17 20:10 - ECG O2 Sat by Pulse Oximetry: 98 Medical Decision Making Medical Decision Making: EKG intermittent paced at 79bpm CXR no acute infiltrate labs reviewed, new onset prerenal failure compared to prior Hgb 10.0 but likely hemoconcentrated Type/screen ordered IVF initiated. No urine yet. 9p d/w Dr Sonja Dickinson, caution w IV fluids as poor EF. Admit given new renal deficit, orders given to RN Disposition - Clinical Impression Clinical Impression: Acute renal failure, Anemia, Dehydration - Patient ED Disposition Is Patient to be Admitted: Yes Counseled Patient/Family Regarding: Studies Performed, Diagnosis, Need For Followup - Disposition Disposition Time: 20:50 Condition: GUARDED Forms: [employer] (Korean) - Pt Status Changed To: Hospital Disposition Of: Inpatient - Admit Certification Admit to Inpatient:: After my assessment, the patient will require hospitalization for at least two midnights. This is because of the severity of symptoms shown, intensity of services needed, and/or the medical risk in this patient being treated as an outpatient. - POA Present On Arrival: None
[2017-04-12 21:21] LABS: TROPONIN I 0.025 ng/mL (0.00-0.120)
[2017-04-12] MEDS ORDERED: Iohexol 240 (50 ml) ONE (21:59)
[2017-04-12] MEDS ORDERED: Phytonadione 1 mg/0.5 ml Inj (Neonatal) IM ONE (22:08)
[2017-04-12] MEDS ORDERED: Phytonadione 10 mg/ml Inj (Adult) SC ONE (22:13)
[2017-04-12] MEDS ORDERED: Phytonadione 10 mg/ml Inj (Adult) ONE (23:24)
[2017-04-13 04:23] VITALS: BMI 23.9
[2017-04-13 05:32] LABS: HEMOGLOBIN 8.1 g/dL (12.0-16.0); MEAN CELL VOLUME 75.5 fl (81.0-99.0); MEAN CORPUSCULAR HEMOGLOBIN 23.3 pg (27.0-31.0); MEAN CORPUSCULAR HGB CONC 30.8 g/dL (33.0-37.0); RBC 3.46 Mil/uL (3.80-5.20); RED CELL DISTRIBUTION WIDTH 18.3 % (11.5-14.5); WHITE BLOOD COUNT 4.4 K/uL (4.8-10.8)
[2017-04-13 05:45] LABS: ALBUMIN 3.1 g/dL (3.5-5.0); CALCIUM 8.3 mg/dL (8.4-10.2)
[2017-04-13] MEDS: Pantoprazole 20 mg EC Tab PO SCH (08:47)
[2017-04-13] MEDS: Levothyroxine 75 MCG TAB PO SCH (08:47)
--- NOTE | 2017-04-13 08:49 | RAD ---
HISTORY: weakness COMPARISON: Chest radiograph dated 12/19/2016. FINDINGS: LUNGS: Stable chronic prominence of the bilateral interstitial markings. Right basilar atelectasis. PLEURA: Trace/small right pleural effusion. No pneumothorax apparent. CARDIOVASCULAR: Left subclavian access AICD/ pacemaker. Prior sternotomy with sternal wires and surgical clips redemonstrated. Atherosclerotic aortic calcifications. Cardiomediastinal silhouette stably enlarged. OSSEOUS STRUCTURES: Unchanged. VISUALIZED UPPER ABDOMEN: Normal. OTHER FINDINGS: None. IMPRESSION: Stable chronic prominence of the bilateral interstitial markings. No focal consolidation. Trace/small right pleural effusion.
[2017-04-13] MEDS ORDERED: Phytonadione 10 mg/ml Inj (Adult) IM ONE (09:02)
[2017-04-13] MEDS: Sodium Chloride 0.9% 1,000 ML IV SCH (09:38)
[2017-04-13] MEDS ORDERED: Phytonadione 10 MG in Sodium Chloride 0.9% 50 ML IV ONE (09:45)
--- NOTE | 2017-04-13 09:54 | CP.PCM.HP ---
History of Present Illness - History of Present Illness History of Present Illness: this 82-year-old female with known coronary artery disease who had required coronary bypass graft surgery more than 30 years back and subsequently has had coronary stenting and also is being treated for chronic atrial fibrillation with congestive cardiac failure and has had an AICD implanted more than 4 years back , came into the hospital complaining of profound fatigue and extreme loss of appetite and was hospitalized. The patient is not a diabetic and was never a smoker. She was hospitalized a month and a half back with GI bleed and was found to have a bleeding peptic ulcer which has been treated. The patient has been on chronic oral anticoagulation with Xarelto for more than 4 years. Her last echocardiogram approximately a year and a half back shows severe left ventricular systolic dysfunction with an estimated left ventricular ejection fraction of around 15% and severe mitral regurgitation. The patient was being treated aggressively with diuretics which consisted of furosemide and spironolactone and her BUN/creatinine which was mildly elevated in the past showed an abrupt rise as well as a sudden drop in her GFR as well as a systolic blood pressure in the range of 80-90 mmHg. This was accompanied by a profound sense of fatigue. The patient is being treated for anxiety and mild depression.the patient was recently started on oral amiodarone in preparation to slow her heart rate down and possibly convert her back to sinus rhythm. In the emergency room she was treated with intravenous infusion of normal saline and sent to the intensive care unit where she is being monitored overnight.she is alert awake and coherent and is able to breathe comfortably at 16 breaths per minute and carry on a conversation. She has received approximately 3 L of fluid intravenously since her arrival in the emergency room. Her quality assurance monitor shows atrial fibrillation with a heart rate of 78 bpm with intermittent VVI paced rhythm. Her blood pressure was 98/70 mmHg. Her jugular venous pressure was not elevated and there was no edema over her lower extremities. The pedal pulses were not palpable. Her extremities were warm her nailbeds were pink and her mentation was clear. There was no central or peripheral cyanosis. Scar of sternotomy was evident. The apex was in the 6 space , slightly heaving in character with a muffled first heart sound and an apical systolic murmur of mitral regurgitation. There were no rales at the bases. Abdomen was soft liver and spleen were not palpable. her electrocardiogram showed atrial fibrillation with mostly VVI paced rhythm. Rare [place] did not show any Q waves. Her chest x-ray showed cardiomegaly with minimal right pleural effusion. There was no alveolar congestion. Her labs demonstrated a hemoglobin of 10 g which dropped to 8.1 g after IV hydration. Her platelet count was normal. Her BUN and creatinine which were 75 and 2.3 mg percent at admission were 76 and 2.2 mg percent this morning. Her serum potassium level was 3.2 mg/L. Her AST and ALT which were 50 and 61 units at admission were 48 and 58 units this morning. Her PT and INR were 47 seconds and 4.1 at admission in the emergency room the patient has never been on warfarin. The patient was given 10 mg of vitamin K intramuscularly yesterday evening and is given an additional 10 mg this morning. Her troponin level was normal her serum total bilirubin was 2.4 mg percent at admission it was 2 mg percent this morning Impression: severe congestive cardiac failure (which is left ventricular, chronic and systolic) with acute kidney injury secondary to aggressive diuresis. Severe left ventricular systolic dysfunction with status post AICD implant. Severe mitral regurgitation. Stable coronary artery disease with status post coronary bypass graft surgery. Chronic atrial fibrillation.history of recent GI bleed secondary to peptic ulcer disease. The patient is being cautiously hydrated and her BUN creatinine and electrolytes are being monitored. I have given her vitamin K in an attempt to correct her elevated INR. The patient has been kept off of diuretics until her dehydration and hypovolemia resolves. I have discussed with her massage operator present findings. Present on Admission - Present on Admission Any Indicators Present on Admission: No Past Patient History - Infectious Disease Hx of Infectious Diseases: None - Past Medical History & Family History Past Medical History?: Yes - Past Social History Smoking Status: Former Smoker - CARDIAC Hx Cardiac Disorders: Yes Hx Atrial Fibrillation: Yes Hx Congestive Heart Failure: Yes Hx Heart Attack: Yes Hx Hypercholesterolemia: Yes Hx Hypertension: Yes Hx Internal Defibrillator: Yes Hx Pacemaker: Yes Hx Peripheral Edema: Yes - PULMONARY Hx Respiratory Disorders: No - NEUROLOGICAL Hx Neurological Disorder: No - HEENT Hx HEENT Problems: No - RENAL Hx Chronic Kidney Disease: No - ENDOCRINE/METABOLIC Hx Endocrine Disorders: Yes Hx Hypothyroidism: Yes - HEMATOLOGICAL/ONCOLOGICAL Hx Blood Disorders: Yes - INTEGUMENTARY Hx Dermatological Problems: No - MUSCULOSKELETAL/RHEUMATOLOGICAL Hx Arthritis: Yes Hx Falls: No Hx Osteoporosis: Yes - GASTROINTESTINAL Hx Gastrointestinal Disorders: Yes Hx Gastroesophageal Reflux: Yes (HEARTBURN) - GENITOURINARY/GYNECOLOGICAL Hx Genitourinary Disorders: No - PSYCHIATRIC Hx Anxiety: Yes Hx Substance Use: No - SURGICAL HISTORY Hx Coronary Artery Bypass Graft: Yes (CARDIAC [id number]) Other/Comment: RIGHT BREAST CYSTECTOMY, AV ABLATION - ANESTHESIA Hx Anesthesia: Yes Hx Anesthesia Reactions: No Hx Malignant Hyperthermia: No Meds Allergies/Adverse Reactions: Allergies Allergy/AdvReac Type Severity Reaction Status Date / Time No Known Allergies Allergy Verified 06/15/16 10:22 Results - Vital Signs Recent Vital Signs: Last Vital Signs Temp 97.5 F L 04/13/17 08:00 Pulse 85 04/13/17 09:00 Resp 23 04/13/17 09:00 BP 98/60 L 04/13/17 09:00 Pulse Ox 95 04/13/17 09:00 - Labs Result Diagrams: 04/13/17 04:40 04/13/17 04:40 Labs: Laboratory Results - last 24 hr 04/12/17 04/12/17 04/12/17 20:10 20:10 20:10 WBC 4.9 RBC 4.34 Hgb 10.0 L Hct 32.9 L MCV 75.8 L MCH 23.0 L MCHC 30.3 L RDW 18.8 H Plt Count 224 MPV 10.3 Neut % (Auto) 67.9 Lymph % (Auto) 21.4 [place] % (Auto) 9.8 Eos % (Auto) 0.1 Baso % (Auto) 0.8 Neut # (Auto) 3.3 Lymph # (Auto) 1.0 [place] # (Auto) 0.5 Eos # (Auto) 0.0 Baso # (Auto) 0.0 PT 47.1 H* INR 4.1 H APTT 31.4 Sodium 137 Potassium 3.7 Chloride 94 L Carbon Dioxide 21 L Anion Gap 26 H BUN 75 H Creatinine 2.3 H Est GFR ( Amer) 25 Est GFR (Non-Af Amer) 20 Random Glucose 106 H Calcium 9.1 Total Bilirubin 2.4 H AST 50 H ALT 61 H Alkaline Phosphatase 107 Total Creatine Kinase 24 L Troponin I 0.0250 Total Protein 7.4 Albumin 3.9 Globulin 3.5 Albumin/Globulin Ratio 1.1 Blood Type Antibody Screen BBK History Checked 04/12/17 04/13/1718 20:10 04:40 04:40 WBC 4.4 L RBC 3.46 L Hgb 8.1 L Hct 26.2 L MCV 75.5 L MCH 23.3 L MCHC 30.8 L RDW 18.3 H Plt Count 165 MPV Neut % (Auto) Lymph % (Auto) [place] % (Auto) Eos % (Auto) Baso % (Auto) Neut # (Auto) Lymph # (Auto) [place] # (Auto) Eos # (Auto) Baso # (Auto) PT INR APTT Sodium 136 Potassium 3.2 L Chloride 97 L Carbon Dioxide 23 Anion Gap 19 BUN 76 H Creatinine 2.2 H Est GFR ( Amer) 26 Est GFR (Non-Af Amer) 21 Random Glucose 88 Calcium 8.3 L Total Bilirubin 2.0 H AST 48 H ALT 58 H Alkaline Phosphatase 82 Total Creatine Kinase Troponin I Total Protein 6.2 L Albumin 3.1 L D Globulin 3.1 Albumin/Globulin Ratio 1.0 Blood Type B POSITIVE Antibody Screen Negative BBK History Checked No verified bt
[2017-04-13] MEDS ORDERED: Potassium Chloride 20 mEq ER Tab PO ONE (10:45)
[2017-04-13] MEDS: Metoprolol Succinate 50 mg XL Tab PO SCH (10:53)
[2017-04-14] MEDS: Sodium Chloride 0.9% 1,000 ML IV SCH (04:24)
[2017-04-14 05:21] LABS: HEMOGLOBIN 8.8 g/dL (12.0-16.0); MEAN CELL VOLUME 74.7 fl (81.0-99.0); MEAN CORPUSCULAR HEMOGLOBIN 23.5 pg (27.0-31.0); MEAN CORPUSCULAR HGB CONC 31.5 g/dL (33.0-37.0); RBC 3.72 Mil/uL (3.80-5.20); RED CELL DISTRIBUTION WIDTH 18.4 % (11.5-14.5); WHITE BLOOD COUNT 3.9 K/uL (4.8-10.8)
[2017-04-14 05:24] LABS: PROTHROMBIN TIME 30.1 Seconds (9.8-13.1)
[2017-04-14 05:25] LABS: INR 2.7 (0.9-1.2)
[2017-04-14 05:42] LABS: ALB/GLOB RATIO 0.9 (1.0-2.1); ALBUMIN 2.9 g/dL (3.5-5.0); CALCIUM 8.2 mg/dL (8.4-10.2)
[2017-04-14] MEDS ORDERED: Sodium Chloride 0.9% 1,000 ML IV SCH (08:37)
--- NOTE | 2017-04-14 08:43 | CP.PCM.PN ---
Subjective - Date & Time of Evaluation Date of Evaluation: 04/14/17 Time of Evaluation: 09:00 - Subjective Subjective: Generally comfortable, unhappy about being hospitalised Has received 80 ml NS/ hour over last 24 hrs BP 96/70 mm Hg, A Fib at 90 BPM ( Pacer in VVI mode) BUN/Creatinin dropped further to 64/1.8 mg (GFR 27ml/min from 20 at admission) K+ 3.3 mEq/L (K+ replacement ordered) INR 2.7 (after Vit K replacement (???) HB stable at 8.8 Gms Abnormal liver chemestries (?? due to Amiodarone, will D/C it) Have reduced IV fluids, pt taking oral nurishment Will monitor CMP/CBC and INR Pt has been sitting OOB Pt well enough to leave ICU soon Objective - Vital Signs/Intake and Output Vital Signs (last 24 hours): Temp Pulse Resp BP Pulse Ox 98.5 F 87 30 H 98/62 L 100 04/14/17 08:00 04/14/17 08:00 04/14/17 08:00 04/14/17 08:00 04/14/17 08:00 Intake and Output: 04/14/17 04/14/17 06:59 18:59 Intake Total 980 Output Total 200 Balance 780 - Medications Medications: Current Medications Alprazolam (Xanax) 0.25 mg PO HS [facility] Stop: 04/20/17 22:01 Last Admin: 04/13/17 23:32 Dose: 0.25 mg Atorvastatin Calcium (Lipitor) 20 mg PO HS [facility] Last Admin: 04/13/17 21:45 Dose: 20 mg Sodium Chloride (Sodium Chloride 0.9%) 1,000 mls @ 30 mls/hr IV .Q24H [facility] Stop: 04/14/17 09:03 Levothyroxine Sodium (Synthroid) 75 mcg PO DAILY [facility] Last Admin: 04/13/17 08:47 Dose: 75 mcg Metoprolol Succinate (Toprol Xl) 50 mg PO DAILY [facility] Last Admin: 04/13/17 10:53 Dose: 50 mg Pantoprazole Sodium (Protonix Ec Tab) 20 mg PO DAILY [facility] Last Admin: 04/13/17 08:47 Dose: 20 mg Potassium Chloride (K-Dur 20 Meq Er Tab) 20 meq PO BID [facility] - Labs Labs: 04/14/17 04:50 04/14/17 04:50 PT 30.1 Seconds (9.8-13.1) H D 04/14/17 04:50 INR 2.7 (0.9-1.2) H D 04/14/17 04:50 APTT 31.4 Seconds (25.6-37.1) 04/12/17 20:10
[2017-04-14] MEDS: Potassium Chloride 20 mEq ER Tab PO SCH ×2 (09:21→16:40)
[2017-04-14] MEDS: Pantoprazole 20 mg EC Tab PO SCH (09:22)
[2017-04-14] MEDS: Metoprolol Succinate 50 mg XL Tab PO SCH (09:23)
[2017-04-14] MEDS: Levothyroxine 75 MCG TAB PO SCH (09:23)
--- NOTE | 2017-04-14 11:00 | CARD ---
APPROVED REPORT EKG Measurement Heart [id number] <Conclusion> Ventricular paced rhythm with occasional inherent QRS complexes Abnormal ECG
[2017-04-15 05:26] LABS: HEMOGLOBIN 8.4 g/dL (12.0-16.0); MEAN CELL VOLUME 74.6 fl (81.0-99.0); MEAN CORPUSCULAR HEMOGLOBIN 23.3 pg (27.0-31.0); MEAN CORPUSCULAR HGB CONC 31.3 g/dL (33.0-37.0); RBC 3.59 Mil/uL (3.80-5.20); RED CELL DISTRIBUTION WIDTH 18.3 % (11.5-14.5); WHITE BLOOD COUNT 4.1 K/uL (4.8-10.8)
[2017-04-15 05:46] LABS: INR 1.8 (0.9-1.2); PROTHROMBIN TIME 19.6 Seconds (9.8-13.1)
[2017-04-15 06:09] LABS: ALB/GLOB RATIO 0.8 (1.0-2.1); ALBUMIN 2.7 g/dL (3.5-5.0); CALCIUM 8.7 mg/dL (8.4-10.2)
[2017-04-15] MEDS: Levothyroxine 75 MCG TAB PO SCH (07:00)
[2017-04-15] MEDS: Pantoprazole 20 mg EC Tab PO SCH (09:26)
[2017-04-15] MEDS: Potassium Chloride 20 mEq ER Tab PO SCH ×2 (09:26→16:44)
[2017-04-15] MEDS: Metoprolol Succinate 50 mg XL Tab PO SCH (09:27)
[2017-04-15] MEDS ORDERED: Sodium Chloride 0.9% 1,000 ML IV SCH (12:30)
--- NOTE | 2017-04-15 12:35 | CP.PCM.PN ---
Subjective - Date & Time of Evaluation Date of Evaluation: 04/15/17 Time of Evaluation: 12:15 - Subjective Subjective: Had a BM this AM, now sitting OOB Denies any dyspnoea A Fib (with VVI pacing) at 80 BPM BP 98/70 mm Hg Pulse ox 97 % on N/C Resp rate 16-18 BPM, can converse without difficulty JVP flat (reclining in bed) No pedal oedema No rales S1 muffled with MR+ BUN/Creatinin 59/1.8 Mg K+ normal INR 1.8 (from 2.7 yesterday) HB stable AST/ALT continue to be abnormal (Off of Amiodarone) Have continued IV fluids(Takes oral fluids as well) Awaits bed out of ICU Will monitor labs Objective - Vital Signs/Intake and Output Vital Signs (last 24 hours): Temp Pulse Resp BP Pulse Ox 97.6 F 83 31 H 96/57 L 100 04/15/17 12:27 04/15/17 12:27 04/15/17 12:27 04/15/17 12:27 04/15/17 12:27 Intake and Output: 04/15/17 04/15/17 06:59 18:59 Intake Total 600 240 Output Total 200 Balance 400 240 - Medications Medications: Current Medications Alprazolam (Xanax) 0.25 mg PO [facility] Stop: 04/20/17 22:01 Last Admin: 04/14/17 23:46 Dose: 0.25 mg Atorvastatin Calcium (Lipitor) 20 mg PO [facility] Last Admin: 04/14/17 22:13 Dose: 20 mg Sodium Chloride (Sodium Chloride 0.9%) 1,000 mls @ 50 mls/hr IV .Q20H [facility] Stop: 04/16/17 12:26 Levothyroxine Sodium (Synthroid) 75 mcg PO DAILY@0630 [facility] Last Admin: 04/15/17 07:00 Dose: 75 mcg Metoprolol Succinate (Toprol Xl) 50 mg PO DAILY [facility] Last Admin: 04/15/17 09:27 Dose: 50 mg Pantoprazole Sodium (Protonix Ec Tab) 20 mg PO DAILY [facility] Last Admin: 04/15/17 09:26 Dose: 20 mg Potassium Chloride (K-Dur 20 Meq Er Tab) 20 meq PO BID [facility] Last Admin: 04/15/17 09:26 Dose: 20 meq - Labs Labs: 02/18/18 04:00 04/15/17 05:28 PT 19.6 Seconds (9.8-13.1) H D 04/15/17 04:00 INR 1.8 (0.9-1.2) H D 04/15/17 04:00 APTT 31.4 Seconds (25.6-37.1) 04/12/17 20:10
[2017-04-16 05:28] LABS: ALB/GLOB RATIO 0.9 (1.0-2.1); ALBUMIN 2.9 g/dL (3.5-5.0); CALCIUM 8.6 mg/dL (8.4-10.2)
[2017-04-16 05:31] LABS: HEMOGLOBIN 8.4 g/dL (12.0-16.0); MEAN CELL VOLUME 75.1 fl (81.0-99.0); MEAN CORPUSCULAR HEMOGLOBIN 22.7 pg (27.0-31.0); MEAN CORPUSCULAR HGB CONC 30.3 g/dL (33.0-37.0); RBC 3.68 Mil/uL (3.80-5.20); RED CELL DISTRIBUTION WIDTH 18.2 % (11.5-14.5); WHITE BLOOD COUNT 4.4 K/uL (4.8-10.8)
[2017-04-16 05:41] LABS: INR 1.6 (0.9-1.2); PROTHROMBIN TIME 17.4 Seconds (9.8-13.1)
[2017-04-16] MEDS: Levothyroxine 75 MCG TAB PO SCH (06:25)
[2017-04-16] MEDS: Potassium Chloride 20 mEq ER Tab PO SCH (08:25)
[2017-04-16] MEDS: Metoprolol Succinate 50 mg XL Tab PO SCH (08:26)
[2017-04-16] MEDS: Pantoprazole 20 mg EC Tab PO SCH (08:26)
--- NOTE | 2017-04-16 09:34 | CP.PCM.PN ---
Subjective - Date & Time of Evaluation Date of Evaluation: 04/16/17 Time of Evaluation: 09:00 - Subjective Subjective: Sitting OOB, appears comfortable No dyspnoea, no orthopnoea A Fib at 90 BPM, BP 100/64 mm Hg JVP flat, No pedal oedema few basal rales+ Faint S3 gallop+ Labs: BUN/Creatinin 49/1.7 mg, GFR 29ml/min Electrolytes normal INR down to 1.6 Liver profile: Enzymes still elevated Hb stable at 8.4 Gms ( microcytic) Will include Iron studies with tomorrows labs Will check for OB in stool Objective - Vital Signs/Intake and Output Vital Signs (last 24 hours): Temp Pulse Resp BP Pulse Ox 98.0 F 89 17 100/60 100 04/16/17 08:00 04/16/17 08:26 04/16/17 08:00 04/16/17 08:26 04/16/17 08:00 - Medications Medications: Current Medications Alprazolam (Xanax) 0.25 mg PO HS [facility] Stop: 04/20/17 22:01 Last Admin: 04/15/17 23:18 Dose: 0.25 mg Atorvastatin Calcium (Lipitor) 20 mg PO HS [facility] Last Admin: 04/15/17 23:17 Dose: 20 mg Sodium Chloride (Sodium Chloride 0.9%) 1,000 mls @ 50 mls/hr IV .Q20H [facility] Stop: 04/16/17 12:26 Last Admin: 04/15/17 12:29 Dose: 50 mls/hr Levothyroxine Sodium (Synthroid) 75 mcg PO DAILY@0630 [facility] Last Admin: 04/16/17 06:25 Dose: 75 mcg Metoprolol Succinate (Toprol Xl) 50 mg PO DAILY [facility] Last Admin: 04/16/17 08:26 Dose: 50 mg Pantoprazole Sodium (Protonix Ec Tab) 20 mg PO DAILY [facility] Last Admin: 04/16/17 08:26 Dose: 20 mg Potassium Chloride (K-Dur 20 Meq Er Tab) 20 meq PO BID [facility] Last Admin: 04/16/17 08:25 Dose: 20 meq - Labs Labs: 04/16/17 04:20 04/16/17 04:20 PT 17.4 Seconds (9.8-13.1) H 04/16/17 04:20 INR 1.6 (0.9-1.2) H 04/16/17 04:20 APTT 31.4 Seconds (25.6-37.1) 04/12/17 20:10
[2017-04-17 05:15] LABS: HEMOGLOBIN 8.3 g/dL (12.0-16.0); MEAN CELL VOLUME 74.8 fl (81.0-99.0); MEAN CORPUSCULAR HEMOGLOBIN 22.6 pg (27.0-31.0); MEAN CORPUSCULAR HGB CONC 30.2 g/dL (33.0-37.0); RBC 3.69 Mil/uL (3.80-5.20); RED CELL DISTRIBUTION WIDTH 18.6 % (11.5-14.5); WHITE BLOOD COUNT 4.8 K/uL (4.8-10.8)
[2017-04-17 05:27] LABS: ALB/GLOB RATIO 0.9 (1.0-2.1); ALBUMIN 2.9 g/dL (3.5-5.0); CALCIUM 8.8 mg/dL (8.4-10.2)
[2017-04-17 06:12] LABS: INR 1.5 (0.9-1.2); PROTHROMBIN TIME 16.2 Seconds (9.8-13.1)
[2017-04-17] MEDS: Levothyroxine 75 MCG TAB PO SCH (06:35)
[2017-04-17 08:02] LABS: IRON 12 ug/dL (37-170)
[2017-04-17 08:12] LABS: % IRON SATURATION 4 % (20-55); TOTAL IRON BINDING CAPACITY 339 ug/dL (250-450)
[2017-04-17] MEDS: Pantoprazole 20 mg EC Tab PO SCH (08:15)
[2017-04-17] MEDS ORDERED: Metoprolol Succinate 100 mg XL Tab PO SCH (09:00)
--- NOTE | 2017-04-17 11:18 | CP.PCM.PN ---
Subjective - Date & Time of Evaluation Date of Evaluation: 04/17/17 Time of Evaluation: 08:50 - Subjective Subjective: Sitting OOB C/O anorexia A Fib at 80 BPM BP 100/70 mm Hg JVP flat, no oedema over feet Azotemia continues to resolve, K + normal INR continues to normalise LIVER profile continues to be abnormal (Amiodarone was D/Cornel 3 days back) Have requested GI evaluation with Dr. Duarte Have requested CT abd/pelvis with Oral contrast (no IV contract due to dilip BUN/Creatinin) Iron studies show low Fe stores and low Fe saturation Have arranged IV Fe infusion Stool OB awaited Objective - Vital Signs/Intake and Output Vital Signs (last 24 hours): Temp Pulse Resp BP Pulse Ox 97.9 F 111 H 24 98/67 L 100 04/17/17 08:00 04/17/17 08:15 04/17/17 08:00 04/17/17 08:15 04/17/17 08:00 Intake and Output: 04/17/17 04/17/17 06:59 18:59 Intake Total 100 Balance 100 - Medications Medications: Current Medications Alprazolam (Xanax) 0.25 mg PO HS PRN PRN Reason: Sleep Stop: 04/23/17 23:34 Last Admin: 04/16/17 23:41 Dose: 0.25 mg Atorvastatin Calcium (Lipitor) 20 mg PO [facility] Last Admin: 04/16/17 21:53 Dose: 20 mg Levothyroxine Sodium (Synthroid) 75 mcg PO DAILY@0630 [facility] Last Admin: 04/17/17 06:35 Dose: 75 mcg Metoprolol Succinate (Toprol Xl) 100 mg PO DAILY [facility] Last Admin: 04/17/17 08:15 Dose: 100 mg Pantoprazole Sodium (Protonix Ec Tab) 20 mg PO DAILY [facility] Last Admin: 04/17/17 08:15 Dose: 20 mg - Labs Labs: 04/17/17 04:40 04/17/17 04:40 PT 16.2 Seconds (9.8-13.1) H 04/17/17 04:40 INR 1.5 (0.9-1.2) H 04/17/17 04:40 APTT 31.4 Seconds (25.6-37.1) 04/12/17 20:10
[2017-04-17] MEDS ORDERED: Iohexol 240 (50 ml) PO ONE (11:52)
--- NOTE | 2017-04-17 15:16 | CT ---
PROCEDURE: CT Abdomen and Pelvis without intravenous contrast HISTORY: Abnormal Liver profile COMPARISON: None. TECHNIQUE: Without contrast.. Contrast Dose: 0 Radiation dose: Total exam DLP = 757.87 mGy-cm. This CT exam was performed using one or more of the following dose reduction techniques: Automated exposure control, adjustment of the mA and/or kV according to patient size, and/or use of iterative reconstruction technique. FINDINGS: LOWER THORAX: Small bilateral pleural effusion. Minimal bilateral lower lobe compressive atelectasis. Cardiomegaly. CABG. AICD. LIVER: Normal size, contour and attenuation. No mass. Several punctate calcifications likely representing calcified old granulomata. No biliary dilatation. GALLBLADDER AND BILE DUCTS: High attenuation bile, nonspecific. No calcified gallstones. Mild nonspecific mural thickening noted. PANCREAS: Unremarkable. No gross lesion or ductal dilatation. SPLEEN: Unremarkable. ADRENALS: Unremarkable. No mass. KIDNEYS AND URETERS: Unremarkable. No hydronephrosis. No solid mass. VASCULATURE: Unremarkable. No aortic aneurysm. BOWEL: Unremarkable. No obstruction. No gross mural thickening. APPENDIX: Unremarkable. Normal appendix. PERITONEUM: Mild ascites. LYMPH NODES: Unremarkable. No enlarged lymph nodes. BLADDER: Poorly distended. Grossly unremarkable. REPRODUCTIVE: Normal atrophic postmenopausal uterus. BONES: Sclerosis about the SI joints bilaterally, right greater than left. Grade 1 anterolisthesis L4-5 without spondylolysis. OTHER FINDINGS: None. IMPRESSION: Mild ascites. Small bilateral pleural effusion. Cardiomegaly, CABG and AICD. No evidence of biliary obstruction. Mild mural thickening of the gallbladder, nonspecific. Additional minor findings as above.
--- NOTE | 2017-04-17 18:27 | CP.PCM.CON ---
History of Present Illness - History of Present Illness History of Present Illness: Pt is 82 year old female with CAD CHF HFLEF Afib Hypoyhyroidism and bleeding PUD admitted with exacerbation of CHF and ARF secondary to aggressive diuresis. Pt is referred for evaluation of postprandial epigastric discomfort fullness and decrease po intake. Pt denies hematemesis melena or change in bowel habits, no loss of weight or recurrent nausea and vomiting since admission Review of Systems - Gastrointestinal Gastrointestinal: As Per HPI - Genitourinary Genitourinary: As Per HPI Past Patient History - Infectious Disease Hx of Infectious Diseases: None - Past Medical History & Family History Past Medical History?: Yes - Past Social History Smoking Status: Former Smoker - CARDIAC Hx Cardiac Disorders: Yes Hx Atrial Fibrillation: Yes Hx Congestive Heart Failure: Yes Hx Heart Attack: Yes Hx Hypercholesterolemia: Yes Hx Hypertension: Yes Hx Internal Defibrillator: Yes Hx Pacemaker: Yes Hx Peripheral Edema: Yes - PULMONARY Hx Respiratory Disorders: No - NEUROLOGICAL Hx Neurological Disorder: No - HEENT Hx HEENT Problems: No - RENAL Hx Chronic Kidney Disease: No - ENDOCRINE/METABOLIC Hx Endocrine Disorders: Yes Hx Hypothyroidism: Yes - HEMATOLOGICAL/ONCOLOGICAL Hx Blood Disorders: Yes - INTEGUMENTARY Hx Dermatological Problems: No - MUSCULOSKELETAL/RHEUMATOLOGICAL Hx Arthritis: Yes Hx Falls: No Hx Osteoporosis: Yes - GASTROINTESTINAL Hx Gastrointestinal Disorders: Yes Hx Gastroesophageal Reflux: Yes (HEARTBURN) - GENITOURINARY/GYNECOLOGICAL Hx Genitourinary Disorders: No - PSYCHIATRIC Hx Anxiety: Yes Hx Substance Use: No - SURGICAL HISTORY Hx Coronary Artery Bypass Graft: Yes (CARDIAC [id number]) Other/Comment: RIGHT BREAST CYSTECTOMY, AV ABLATION - ANESTHESIA Hx Anesthesia: Yes Hx Anesthesia Reactions: No Hx Malignant Hyperthermia: No Meds Allergies/Adverse Reactions: Allergies Allergy/AdvReac Type Severity Reaction Status Date / Time No Known Allergies Allergy Verified 06/15/16 10:22 - Medications Medications: Current Medications Alprazolam (Xanax) 0.25 mg PO HS PRN PRN Reason: Sleep Stop: 04/23/17 23:34 Last Admin: 04/16/17 23:41 Dose: 0.25 mg Atorvastatin Calcium (Lipitor) 20 mg PO HS [facility] Last Admin: 04/16/17 21:53 Dose: 20 mg Iron Sucrose 200 mg/ Sodium (Chloride) 110 mls @ 110 mls/hr IVPB DAILY [facility] Last Admin: 04/17/17 12:24 Dose: 110 mls/hr Levothyroxine Sodium (Synthroid) 75 mcg PO DAILY@0630 [facility] Last Admin: 04/17/17 06:35 Dose: 75 mcg Metoprolol Succinate (Toprol Xl) 100 mg PO DAILY [facility] Last Admin: 04/17/17 08:15 Dose: 100 mg Pantoprazole Sodium (Protonix Ec Tab) 20 mg PO DAILY [facility] Last Admin: 04/17/17 08:15 Dose: 20 mg Physical Exam - Constitutional Appears: No Acute Distress - Head Exam Head Exam: ATRAUMATIC, NORMAL INSPECTION, NORMOCEPHALIC - Eye Exam Eye Exam: EOMI, Normal appearance, PERRL - Neck Exam Neck exam: Positive for: Normal Inspection - Respiratory Exam Respiratory Exam: Clear to Auscultation Bilateral - Cardiovascular Exam Cardiovascular Exam: Irregular Rhythm, Systolic Murmur - GI/Abdominal Exam GI & Abdominal Exam: Normal Bowel Sounds, Soft. absent: Tenderness - Rectal Exam Rectal Exam: Deferred - Extremities Exam Extremities exam: Positive for: normal inspection - Back Exam Back exam: NORMAL INSPECTION - Neurological Exam Neurological exam: Alert, CN II-XII Intact, Normal Gait, Oriented x3, Reflexes Normal - Skin Skin Exam: Dry, Intact, Normal Color, Warm Results - Vital Signs Recent Vital Signs: Last Vital Signs Temp 97.0 F L 04/17/17 16:00 Pulse 106 H 04/17/17 16:00 Resp 18 04/17/17 16:00 BP 93/61 L 04/17/17 16:00 Pulse Ox 100 04/17/17 16:00 - Labs Result Diagrams: 04/18/17 04:50 04/18/17 04:50 Labs: Laboratory Results - last 24 hr 04/17/17 04/17/17 04/17/17 04:40 04:40 04:40 WBC 4.8 RBC 3.69 L Hgb 8.3 L Hct 27.6 L MCV 74.8 L MCH 22.6 L MCHC 30.2 L RDW 18.6 H Plt Count 134 PT 16.2 H INR 1.5 H Sodium 139 Potassium 4.7 Chloride 105 Carbon Dioxide 22 Anion Gap 17 BUN 45 H Creatinine 1.6 H Est GFR ( Amer) 38 Est GFR (Non-Af Amer) 31 Random Glucose 91 Calcium 8.8 Iron TIBC % Saturation Ferritin Total Bilirubin 2.1 H AST 61 H ALT 68 H Alkaline Phosphatase 98 Total Protein 6.2 L Albumin 2.9 L Globulin 3.3 Albumin/Globulin Ratio 0.9 L 04/17/17 04/17/17 07:30 07:30 WBC RBC Hgb Hct MCV MCH MCHC RDW Plt Count PT INR Sodium Potassium Chloride Carbon Dioxide Anion Gap BUN Creatinine Est GFR ( Amer) Est GFR (Non-Af Amer) Random Glucose Calcium Iron 12 L TIBC 339 % Saturation 4 L Ferritin 25.8 Total Bilirubin AST ALT Alkaline Phosphatase Total Protein Albumin Globulin Albumin/Globulin Ratio Assessment & Plan (1) Acute renal failure Status: Acute (2) Anemia Status: Acute (3) Dehydration Status: Acute (4) CHF (congestive heart failure) Status: Acute (5) Pedal edema Status: Acute - Assessment and Plan (Free Text) Assessment: 82 year old female with HFLEF Afib ARF Congestive Hepatis and Dyspepsia secondary to PUD Continue Pentoprazole Monitor LFT EGD to assure healing OF PUD when medically stable
[2017-04-18 05:28] LABS: HEMOGLOBIN 7.9 g/dL (12.0-16.0); MEAN CELL VOLUME 74.3 fl (81.0-99.0); MEAN CORPUSCULAR HEMOGLOBIN 23.4 pg (27.0-31.0); MEAN CORPUSCULAR HGB CONC 31.5 g/dL (33.0-37.0); RBC 3.36 Mil/uL (3.80-5.20); RED CELL DISTRIBUTION WIDTH 18.2 % (11.5-14.5); WHITE BLOOD COUNT 4.6 K/uL (4.8-10.8)
[2017-04-18 05:43] LABS: INR 1.5 (0.9-1.2); PROTHROMBIN TIME 16.9 Seconds (9.8-13.1)
[2017-04-18] MEDS: Levothyroxine 75 MCG TAB PO SCH (06:03)
[2017-04-18 06:22] LABS: ALB/GLOB RATIO 0.9 (1.0-2.1); ALBUMIN 2.7 g/dL (3.5-5.0); CALCIUM 8.6 mg/dL (8.4-10.2)
--- NOTE | 2017-04-18 09:11 | CP.PCM.CON ---
History of Present Illness - History of Present Illness History of Present Illness: Sitting OOB, ate half of her breakfast Slept well A Fib at 90-100 BPM BP 104/70 mm Hg JVP flat, no oedema over feet Labs show Creatinin 1.7 mg% Electrolytes normal INR 1.6 (will restart Xarelto (at 15 mg daily) CT abd: no liver masses Await GI eval Getting IV Fe Pt to start PT Stool for OB (results awaited) Past Patient History - Infectious Disease Hx of Infectious Diseases: None - Past Medical History & Family History Past Medical History?: Yes - Past Social History Smoking Status: Former Smoker - CARDIAC Hx Cardiac Disorders: Yes Hx Atrial Fibrillation: Yes Hx Congestive Heart Failure: Yes Hx Heart Attack: Yes Hx Hypercholesterolemia: Yes Hx Hypertension: Yes Hx Internal Defibrillator: Yes Hx Pacemaker: Yes Hx Peripheral Edema: Yes - PULMONARY Hx Respiratory Disorders: No - NEUROLOGICAL Hx Neurological Disorder: No - HEENT Hx HEENT Problems: No - RENAL Hx Chronic Kidney Disease: No - ENDOCRINE/METABOLIC Hx Endocrine Disorders: Yes Hx Hypothyroidism: Yes - HEMATOLOGICAL/ONCOLOGICAL Hx Blood Disorders: Yes - INTEGUMENTARY Hx Dermatological Problems: No - MUSCULOSKELETAL/RHEUMATOLOGICAL Hx Arthritis: Yes Hx Falls: No Hx Osteoporosis: Yes - GASTROINTESTINAL Hx Gastrointestinal Disorders: Yes Hx Gastroesophageal Reflux: Yes (HEARTBURN) - GENITOURINARY/GYNECOLOGICAL Hx Genitourinary Disorders: No - PSYCHIATRIC Hx Anxiety: Yes Hx Substance Use: No - SURGICAL HISTORY Hx Coronary Artery Bypass Graft: Yes (CARDIAC [id number]) Other/Comment: RIGHT BREAST CYSTECTOMY, AV ABLATION - ANESTHESIA Hx Anesthesia: Yes Hx Anesthesia Reactions: No Hx Malignant Hyperthermia: No Meds Allergies/Adverse Reactions: Allergies Allergy/AdvReac Type Severity Reaction Status Date / Time No Known Allergies Allergy Verified 06/15/16 10:22 - Medications Medications: Current Medications Alprazolam (Xanax) 0.25 mg PO HS PRN PRN Reason: Sleep Stop: 04/23/17 23:34 Last Admin: 04/16/17 23:41 Dose: 0.25 mg Atorvastatin Calcium (Lipitor) 20 mg PO HS [facility] Last Admin: 04/17/17 21:11 Dose: 20 mg Iron Sucrose 200 mg/ Sodium (Chloride) 110 mls @ 110 mls/hr IVPB DAILY [facility] Last Admin: 04/17/17 12:24 Dose: 110 mls/hr Levothyroxine Sodium (Synthroid) 75 mcg PO DAILY@0630 [facility] Last Admin: 04/18/17 06:03 Dose: 75 mcg Metoprolol Succinate (Toprol Xl) 100 mg PO DAILY [facility] Last Admin: 04/17/17 08:15 Dose: 100 mg Pantoprazole Sodium (Protonix Ec Tab) 20 mg PO DAILY [facility] Last Admin: 04/17/17 08:15 Dose: 20 mg Results - Vital Signs Recent Vital Signs: Last Vital Signs Temp 97.9 F 04/18/17 08:00 Pulse 97 H 04/18/17 08:00 Resp 35 H 04/18/17 08:00 BP 100/57 L 04/18/17 08:00 Pulse Ox 97 04/18/17 08:00 - Labs Result Diagrams: 04/18/17 04:50 04/18/17 04:50 Labs: Laboratory Results - last 24 hr 04/18/17 04/18/17 04/18/17 04:50 04:50 04:50 WBC 4.6 L RBC 3.36 L Hgb 7.9 L Hct 25.0 L MCV 74.3 L MCH 23.4 L MCHC 31.5 L RDW 18.2 H Plt Count 120 L PT 16.9 H INR 1.5 H Sodium 138 Potassium 4.4 Chloride 104 Carbon Dioxide 23 Anion Gap 15 BUN 44 H Creatinine 1.7 H Est GFR ( Amer) 35 Est GFR (Non-Af Amer) 29 Random Glucose 76 Calcium 8.6 Total Bilirubin 2.3 H AST 85 H D ALT 69 H Alkaline Phosphatase 104 Total Protein 5.8 L Albumin 2.7 L Globulin 3.1 Albumin/Globulin Ratio 0.9 L
[2017-04-18] MEDS: Pantoprazole 20 mg EC Tab PO SCH (09:23)
--- NOTE | 2017-04-18 20:45 | CP.PCM.PN ---
Subjective - Date & Time of Evaluation Date of Evaluation: 04/18/17 Time of Evaluation: 11:00 - Subjective Subjective: PT doing better c/o postprandial fullness epigastric discomfort Objective - Vital Signs/Intake and Output Vital Signs (last 24 hours): Temp Pulse Resp BP Pulse Ox 98.0 F 112 H 18 95/59 L 99 04/18/17 19:59 04/18/17 19:59 04/18/17 19:59 04/18/17 19:59 04/18/17 19:59 Intake and Output: 04/18/17 04/19/17 18:59 06:59 Intake Total 1100 Balance 1100 - Medications Medications: Current Medications Alprazolam (Xanax) 0.25 mg PO HS PRN PRN Reason: Sleep Stop: 04/23/17 23:34 Last Admin: 04/16/17 23:41 Dose: 0.25 mg Atorvastatin Calcium (Lipitor) 20 mg PO HS [facility] Last Admin: 04/17/17 21:11 Dose: 20 mg Iron Sucrose 200 mg/ Sodium (Chloride) 110 mls @ 110 mls/hr IVPB DAILY [facility] Last Admin: 04/18/17 11:59 Dose: 110 mls/hr Levothyroxine Sodium (Synthroid) 75 mcg PO DAILY@0630 [facility] Last Admin: 04/18/17 06:03 Dose: 75 mcg Metoprolol Tartrate (Lopressor) 100 mg PO Q12 [facility] Last Admin: 04/18/17 12:00 Dose: Not Given Pantoprazole Sodium (Protonix Ec Tab) 20 mg PO DAILY [facility] Last Admin: 04/18/17 09:23 Dose: 20 mg Rivaroxaban (Xarelto) 15 mg PO QD5 [facility] PRN Reason: Protocol Last Admin: 04/18/17 17:38 Dose: 15 mg - Labs Labs: 04/18/17 04:50 04/18/17 04:50 PT 16.9 Seconds (9.8-13.1) H 04/18/17 04:50 INR 1.5 (0.9-1.2) H 04/18/17 04:50 APTT 31.4 Seconds (25.6-37.1) 04/12/17 20:10 - Constitutional Appears: Well - Head Exam Head Exam: ATRAUMATIC, NORMAL INSPECTION, NORMOCEPHALIC - Respiratory Exam Respiratory Exam: Clear to Ausculation Bilateral, NORMAL BREATHING PATTERN - Cardiovascular Exam Cardiovascular Exam: Irregular Rhythm, Murmur - GI/Abdominal Exam GI & Abdominal Exam: Soft, Normal Bowel Sounds. absent: Tenderness Assessment and Plan (1) Acute renal failure Status: Acute (2) Anemia Status: Acute (3) Dehydration Status: Acute (4) CHF (congestive heart failure) Status: Acute (5) Pedal edema Status: Acute (6) Dyspepsia Assessment & Plan: Secondary to History of Known PUD, continue PPI EGD to assure healing of PUD when medically stable Change diet to mechanically soft in view of oropharyngeal Dysphagia secondary to deconditioning. Status: Acute (7) Abnormal LFTs Assessment & Plan: Most likely secondary to congestive Hepatitis, Hepatitis B and C serology ordered and pending Status: Acute
[2017-04-19 06:55] LABS: MEAN CELL VOLUME 73.8 fl (81.0-99.0); MEAN CORPUSCULAR HEMOGLOBIN 23.2 pg (27.0-31.0); MEAN CORPUSCULAR HGB CONC 31.4 g/dL (33.0-37.0); RBC 3.44 Mil/uL (3.80-5.20); RED CELL DISTRIBUTION WIDTH 18.6 % (11.5-14.5); WHITE BLOOD COUNT 4.2 K/uL (4.8-10.8)
[2017-04-19 07:04] LABS: PROTHROMBIN TIME 45.7 Seconds (9.8-13.1)
[2017-04-19] MEDS: Levothyroxine 75 MCG TAB PO SCH (07:10)
[2017-04-19 07:30] LABS: ALB/GLOB RATIO 0.8 (1.0-2.1); ALBUMIN 2.7 g/dL (3.5-5.0); CALCIUM 8.6 mg/dL (8.4-10.2)
[2017-04-19] MEDS ORDERED: Phytonadione 10 mg/ml Inj (Adult) IV ONE (07:43)
[2017-04-19] MEDS ORDERED: Phytonadione 10 MG in Sodium Chloride 0.9% 50 ML IV ONE (08:30)
[2017-04-19] MEDS: Pantoprazole 20 mg EC Tab PO SCH (09:17)
--- NOTE | 2017-04-19 09:51 | CP.PCM.PN ---
Subjective - Date & Time of Evaluation Date of Evaluation: 04/19/17 Time of Evaluation: 09:00 - Subjective Subjective: Pt out of ICU Continues to have severe fatigue and anorexia A Fib at 88 BPM, BP 114/70 mm Hg JVP flat, few rales at bases+ S3 gallop faintly audible Bun trending down (34 mg today, with GFR31 ml/mn) INR shot up to 4.0 (having responded to Vit K before) Will withold Xarelto till INR resolves Dr Duarte's note appreciated Spoke with EP yesterday When she is stable will arrange Device replacement and A:V node ablation Pt startd physical therapy yesterday Objective - Vital Signs/Intake and Output Vital Signs (last 24 hours): Temp Pulse Resp BP Pulse Ox 97.6 F 94 H 18 104/65 97 04/19/17 08:02 04/19/17 09:15 04/19/17 08:02 04/19/17 09:15 04/19/17 08:02 - Medications Medications: Current Medications Alprazolam (Xanax) 0.25 mg PO HS PRN PRN Reason: Sleep Stop: 04/23/17 23:34 Last Admin: 04/18/17 23:54 Dose: 0.25 mg Atorvastatin Calcium (Lipitor) 20 mg PO HS [facility] Last Admin: 04/18/17 21:46 Dose: 20 mg Iron Sucrose 200 mg/ Sodium (Chloride) 110 mls @ 110 mls/hr IVPB DAILY [facility] Last Admin: 04/18/17 11:59 Dose: 110 mls/hr Levothyroxine Sodium (Synthroid) 75 mcg PO DAILY@0630 [facility] Last Admin: 04/19/17 07:10 Dose: 75 mcg Metoprolol Tartrate (Lopressor) 100 mg PO Q12 [facility] Last Admin: 04/19/17 09:15 Dose: 100 mg Pantoprazole Sodium (Protonix Ec Tab) 20 mg PO DAILY [facility] Last Admin: 04/19/17 09:17 Dose: 20 mg - Labs Labs: 04/19/17 05:30 04/19/17 05:30 PT 45.7 Seconds (9.8-13.1) H* 04/19/17 05:30 INR 4.0 (0.9-1.2) H D 04/19/17 05:30 APTT 31.4 Seconds (25.6-37.1) 04/12/17 20:10
[2017-04-19 16:47] LABS: HEPATITIS B SURFACE AG Negative (NEGATIVE)
[2017-04-19 16:52] LABS: HEPATITIS B CORE AB NEGATIVE (NEGATIVE)
[2017-04-19 17:04] LABS: HEPATITIS C ANTIBODY NEGATIVE (NEGATIVE)
[2017-04-20] MEDS: Levothyroxine 75 MCG TAB PO SCH (05:44)
[2017-04-20 06:13] LABS: INR 1.9 (0.9-1.2); PROTHROMBIN TIME 21.2 Seconds (9.8-13.1)
[2017-04-20 06:38] LABS: ALB/GLOB RATIO 0.8 (1.0-2.1); ALBUMIN 2.8 g/dL (3.5-5.0); CALCIUM 8.7 mg/dL (8.4-10.2)
[2017-04-20] MEDS ORDERED: Phytonadione 10 mg/ml Inj (Adult) IV ONE (07:08)
[2017-04-20] MEDS ORDERED: Phytonadione 10 MG in Sodium Chloride 0.9% 50 ML IV ONE (07:15)
--- NOTE | 2017-04-20 08:46 | CP.PCM.PN ---
Subjective - Date & Time of Evaluation Date of Evaluation: 04/20/17 Time of Evaluation: 07:40 - Subjective Subjective: Sat OOB most of the day yesterday, walked to the bath room with assistance Slept well HR 90 BPM, a fib BP 110/70 mm Hg No oedema over feet JVP still flat Few basal rales S3 gallop+ Labs show: resolving INR (1.7 from 4.0 after IV Vit K) BUN continues to drop GFR 31ml/min Electrolytes normal Liver enzymes abnormal with elevated Garry and Alk phos (suspect Amiodarone related) Will evaluate pt for TCU Objective - Vital Signs/Intake and Output Vital Signs (last 24 hours): Temp Pulse Resp BP Pulse Ox 98.2 F 115 H 18 110/73 100 04/20/17 08:00 04/20/17 08:00 04/20/17 08:00 04/20/17 08:00 04/20/17 08:00 - Medications Medications: Current Medications Atorvastatin Calcium (Lipitor) 20 mg PO HS [facility] Last Admin: 04/19/17 21:25 Dose: 20 mg Iron Sucrose 200 mg/ Sodium (Chloride) 110 mls @ 110 mls/hr IVPB DAILY [facility] Last Admin: 04/19/17 11:19 Dose: 110 mls/hr Levothyroxine Sodium (Synthroid) 75 mcg PO DAILY@0630 [facility] Last Admin: 04/20/17 05:44 Dose: 75 mcg Metoprolol Tartrate (Lopressor) 100 mg PO Q12 [facility] Last Admin: 04/19/17 21:24 Dose: Not Given Pantoprazole Sodium (Protonix Ec Tab) 20 mg PO DAILY [facility] Last Admin: 04/19/17 09:17 Dose: 20 mg - Labs Labs: 04/19/17 05:30 04/20/17 04:50 PT 21.2 Seconds (9.8-13.1) H D 04/20/17 04:50 INR 1.9 (0.9-1.2) H D 04/20/17 04:50 APTT 31.4 Seconds (25.6-37.1) 04/12/17 20:10
[2017-04-20] MEDS: Pantoprazole 20 mg EC Tab PO SCH (09:10)
[2017-04-20 13:23] VITALS: BP 90/59; PULSE 77; RESP 20; TEMP 97.5; O2SAT 96
--- NOTE | 2017-04-23 11:52 | PQF GENQUE ---
This form is a permanent part of the medical record DR. EMILIANA MAYFIELD: PATIENT DIAGNOSED WITH HEALING PEPTIC ULCER WITH ANEMIA. COULD YOU PLEASE CLARIFY IF PEPTIC ULCER WAS STILL BLEEDING AND WAS ANEMIA ACUTE BLOOD LOSS. PRESENT ON ADMISSION. Clarification of your documentation is requested to better reflect the severity of illness and intensity of treatment of your patient. Indicators present [] Specify: [] [] Specify: [] [] Specify: [] [] Specify: [] Location in the medical record that reflects the above clinical findings: [] Treatment Provided: [] PHYSICIAN'S RESPONSE Peptic Ulcer bled in early February 2016. Not bleeding now (Stool for occult blood was -ve) Anemia is due to chronic blood loss. Anemia was present at admission. Based on your medical judgment of the clinical indicators outlined above please clarify the following: [] Practitioner response [] If unable to determine, please check the box, sign and date. Present On Admission (POA) Indicator: [] Present at the time of admission [] Not present at the time of admission [] Clinically Undetermined In responding to this query, please exercise your independent professional judgment. The fact that a question is asked does not imply that any particular answer is desired or expected. Thank you for your clarification on this documentation. If you have any questions please call:[ ] * Thank you, * OLY IVEY [[phone] engineering specialist [place]
== END 2017-04-20 15:10 | DRG 683 ==
LOC: H.ER 18:35 → H.ERHOLD 21:10 → H.ICU/CCU 04-13 03:07 → H.TEL 04-18 14:19
PROVIDERS: ADMIT Internal Medicine Cardiovascular Disease; ATTEND Internal Medicine Cardiovascular Disease
DX: N17.9 Acute kidney failure, unspecified (principal); I50.22 Chronic systolic (congestive) heart failure; E86.0 Dehydration; I48.2 Chronic atrial fibrillation; I11.0 Hypertensive heart disease with heart failure; D50.0 Iron deficiency anemia secondary to blood loss (chronic); E86.1 Hypovolemia; E03.9 Hypothyroidism, unspecified; E78.00 Pure hypercholesterolemia, unspecified; I25.10 Atherosclerotic heart disease of native coronary artery without angina pectoris; I25.2 Old myocardial infarction; I34.0 Nonrheumatic mitral (valve) insufficiency; K21.9 Gastro-esophageal reflux disease without esophagitis; K25.9 Gastric ulcer, unspecified as acute or chronic, without hemorrhage or perforation; M81.0 Age-related osteoporosis without current pathological fracture; Z79.01 Long term (current) use of anticoagulants; Z87.891 Personal history of nicotine dependence; Z95.1 Presence of aortocoronary bypass graft; Z95.5 Presence of coronary angioplasty implant and graft; Z95.810 Presence of automatic (implantable) cardiac defibrillator; F32.9 Major depressive disorder, single episode, unspecified; F41.9 Anxiety disorder, unspecified; M19.90 Unspecified osteoarthritis, unspecified site; R12 Heartburn; Z79.899 Other long term (current) drug therapy; R74.8 Abnormal levels of other serum enzymes; R79.89 Other specified abnormal findings of blood chemistry; T50.2X5A Adverse effect of carbonic-anhydrase inhibitors, benzothiadiazides and other diuretics, initial encounter; Y92.9 Unspecified place or not applicable

== ENCOUNTER 2017-04-20 14:36 | Inpatient (IN) | payer OTHER, MEDICARE ==
[2017-04-20 15:38] VITALS: BMI 24.5
[2017-04-21] MEDS: Levothyroxine 75 MCG TAB PO SCH (05:46)
[2017-04-21 08:52] LABS: ALB/GLOB RATIO 0.8 (1.0-2.1); ALBUMIN 2.8 g/dL (3.5-5.0); CALCIUM 8.6 mg/dL (8.4-10.2)
[2017-04-21] MEDS: Pantoprazole 20 mg EC Tab PO SCH (08:59)
[2017-04-21 09:03] LABS: INR 1.3 (0.9-1.2); PROTHROMBIN TIME 14.7 Seconds (9.8-13.1)
--- NOTE | 2017-04-21 09:31 | CP.PCM.HP ---
History of Present Illness - History of Present Illness History of Present Illness: this 82-year-old female with a long history of coronary artery disease which required coronary bypass graft surgery more than 30 years back and has subsequently required coronary stenting was recently hospitalized for dehydration, acute kidney injury and profound congestive cardiac failure. The patient was gradually hydrated and is now in the transitional care unit before returning home. The patient has had severe left ventricular systolic dysfunction for which she required an AICD placement with biventricular pacing Ability. The patient has had atrial fibrillation and has had a heart rate exceeding the lower rate set for the pacer which has resulted in mostly absence of pacing. consequently the patient cannot avail herself of the benefit of biventricular pacing.tthe patient had been given amiodarone in an attempt to slow her heart rate so as to have her in biventricular pacing mode. The patient has had atrial fibrillation for more than 3 years and has been on oral anticoagulation. She was hospitalized approximately month and a half back at another institution with an acute episode of gastrointestinal bleeding and workup for demonstrated evidence of a peptic ulceras the cause of her GI bleed. The patient has not had any further gastrointestinal bleeding. Workup demonstrated markedly low iron stores and the patient has received intravenous iron over last 5 days amounting to approximately 1 g. The patient was also found to have an elevated INR and has received intravenous vitamin K with prompt resolution of her elevated prothrombin time and INR. The patient has also shown a gradually increasing levels of AST and ALT as well as a mild elevation in her bilirubin and alkaline phosphatase which is probably as a consequence of amiodarone which was given recently. Physical examination shows an elderly exhausted female slightly pale but alert awake and concordant. Afebrile with a pulse rate of 90 bpm irregularly irregular. Her blood pressure was 96/70 mmHg. Her jugular venous pressure was not elevated and there was no pedal or sacral edema. Her extremities were warm and her nailbeds were pink. There was no central or peripheral cyanosis. Her respiratory rate was 16-18 breaths per minute. A scar of sternotomy was evident. The apex wasn't a 6 pale slightly heaving in character. The first heart sound was muffled the second heart sound was normal and apical systolic murmur of mitral regurg was audible. There is a faint S3 gallop. Her labs showed now an INR of 1.3 having received intravenous vitamin K yesterday from 1.7. Her BUN and creatinine were 30 and 1.7 mg percent respectively with a normal electrolyte panel. Her AST and ALT were elevated at 82 and 81 units and her troponin was 2.1 mg percent serum albumen was 2.8 grams. impression: congestive cardiac failure which is chronic left ventricular end- systolic ( class III), due to coronary artery disease with status post coronary bypass graft surgery. Chronic atrial fibrillation. Peptic ulcer disease. Stage III chronic kidney disease. Abnormal liver profile probably secondary to amiodarone. Abnormal coagulopathy secondary to vitamin K deficiency. The patient continues to have slightly low systolic blood pressure and there is no overt evidence of volume overload. I have ordered cautious hydration with intravenous fluids at 40 mL per hour in an attempt to boost her intravascular volume without causing overt volume overload. I have discussed her case with her buckle stringer and the plans are to stabilize her and promptly carry out an AV node ablation along with replacement of AICD which at this point is at its end of life. The patient has been admitted to transitional care unit to improve her effort tolerance. Present on Admission - Present on Admission Any Indicators Present on Admission: No Past Patient History - Infectious Disease Hx of Infectious Diseases: None - Past Medical History & Family History Past Medical History?: Yes - Past Social History Smoking Status: Former Smoker - CARDIAC Hx Cardiac Disorders: Yes Hx Atrial Fibrillation: Yes Hx Congestive Heart Failure: Yes Hx Heart Attack: Yes Hx Hypercholesterolemia: Yes Hx Hypertension: Yes Hx Internal Defibrillator: Yes Hx Pacemaker: Yes Hx Peripheral Edema: Yes - PULMONARY Hx Respiratory Disorders: No - NEUROLOGICAL Hx Neurological Disorder: No - HEENT Hx HEENT Problems: No - RENAL Hx Chronic Kidney Disease: No - ENDOCRINE/METABOLIC Hx Endocrine Disorders: Yes Hx Hypothyroidism: Yes - HEMATOLOGICAL/ONCOLOGICAL Hx Blood Disorders: Yes Hx AIDS: No Hx Human Immunodeficiency Virus (HIV): No - INTEGUMENTARY Hx Dermatological Problems: No - MUSCULOSKELETAL/RHEUMATOLOGICAL Hx Arthritis: Yes Hx Falls: No Hx Osteoporosis: Yes - GASTROINTESTINAL Hx Gastrointestinal Disorders: Yes Hx Gastroesophageal Reflux: Yes (HEARTBURN) - GENITOURINARY/GYNECOLOGICAL Hx Genitourinary Disorders: No - PSYCHIATRIC Hx Anxiety: Yes Hx Substance Use: No - SURGICAL HISTORY Hx Coronary Artery Bypass Graft: Yes (CARDIAC [id number]) Other/Comment: RIGHT BREAST CYSTECTOMY, AV ABLATION - ANESTHESIA Hx Anesthesia: Yes Hx Anesthesia Reactions: No Hx Malignant Hyperthermia: No Meds Allergies/Adverse Reactions: Allergies Allergy/AdvReac Type Severity Reaction Status Date / Time No Known Allergies Allergy Verified 04/20/17 15:38 Results - Vital Signs Recent Vital Signs: Last Vital Signs Temp 96.1 F L 04/21/17 08:51 Pulse 80 04/21/17 08:59 Resp 20 04/21/17 08:51 BP 96/60 L 04/21/17 08:59 Pulse Ox 100 04/21/17 08:51 - Labs Result Diagrams: 04/21/17 08:14 Labs: Laboratory Results - last 24 hr 04/21/17 04/21/17 08:14 08:14 PT 14.7 H D INR 1.3 H D Sodium 139 Potassium 3.8 Chloride 104 Carbon Dioxide 23 Anion Gap 16 BUN 30 H Creatinine 1.7 H Est GFR ( Amer) 35 Est GFR (Non-Af Amer) 29 Random Glucose 87 Calcium 8.6 Total Bilirubin 2.1 H AST 82 H ALT 81 H Alkaline Phosphatase 145 H Total Protein 6.1 L Albumin 2.8 L Globulin 3.3 Albumin/Globulin Ratio 0.8 L
[2017-04-21] MEDS ORDERED: Sodium Chloride 0.9% 1,000 ML IV SCH (09:45)
[2017-04-21] MEDS ORDERED: Phytonadione 10 mg/ml Inj (Adult) IV ONE (10:15)
[2017-04-21] MEDS ORDERED: Phytonadione 10 MG in Sodium Chloride 0.9% 50 ML IV STA (11:00)
[2017-04-22] MEDS: Levothyroxine 75 MCG TAB PO SCH (06:11)
[2017-04-22] MEDS: Pantoprazole 20 mg EC Tab PO SCH (08:23)
[2017-04-22] MEDS ORDERED: Sodium Chloride 0.9% 1,000 ML IV SCH (13:15)
[2017-04-23] MEDS: Levothyroxine 75 MCG TAB PO SCH (06:13)
[2017-04-23] MEDS: Pantoprazole 20 mg EC Tab PO SCH (08:33)
[2017-04-23 09:00] LABS: HEMOGLOBIN 10.1 g/dL (12.0-16.0); MEAN CELL VOLUME 77.3 fl (81.0-99.0); MEAN CORPUSCULAR HEMOGLOBIN 23.9 pg (27.0-31.0); MEAN CORPUSCULAR HGB CONC 30.9 g/dL (33.0-37.0); RBC 4.25 Mil/uL (3.80-5.20); RED CELL DISTRIBUTION WIDTH 19.5 % (11.5-14.5); WHITE BLOOD COUNT 4.4 K/uL (4.8-10.8)
[2017-04-23 09:02] LABS: INR 2.5 (0.9-1.2); PROTHROMBIN TIME 28.5 Seconds (9.8-13.1)
[2017-04-23] MEDS ORDERED: Phytonadione 10 mg/ml Inj (Adult) IV ONE (09:29)
[2017-04-23 09:38] LABS: ALB/GLOB RATIO 0.8 (1.0-2.1); ALBUMIN 3.1 g/dL (3.5-5.0)
[2017-04-23] MEDS ORDERED: Phytonadione 10 MG in Sodium Chloride 0.9% 50 ML IV ONE (10:30)
--- NOTE | 2017-04-23 15:32 | PCM.RRT ---
<Danielle Taylor - Last Filed: 04/23/17 16:40> COMMUNICATIONS SUPERVISOR Nurse Assessment - Situation COMMUNICATIONS SUPERVISOR Responder Arrival Time: 03:15 Location: 7th floor Room Number: 708-1 COMMUNICATIONS SUPERVISOR Reason for Call: Hypotension (Systolic BP below 60s ) COMMUNICATIONS SUPERVISOR Called By: RN - IV IV Inserted during COMMUNICATIONS SUPERVISOR?: No I.Reason for COMMUNICATIONS SUPERVISOR - A) Acute Change in Patient: (Select all that apply): Acute change in SBP below (60 ) Subjective: COMMUNICATIONS SUPERVISOR was called for acute change in systolic BP below 60 for 82 y/o female with PMH of coronary bypass graft surgery/stenting, AICD, and CKD. Patient was doing her PT session and got diaphoretic and BP noted to be below 60 systolic. Patient was placed on trendelenburg position. upon arrival, patient was alert, awake, orientated, verbally responsive, follows commands. Patient denies chest pain, dizziness, SOB or vision changes. (Patient was given Lasix earlier today) . EKG was ordered, shows no change from prior EKG. CBC was order, Dr. Sonja Dickinson made aware, who recommended observation. - Neurological Status (Select all that apply): Alert, Responsive, Oriented, Verbal, Follows Commands - Respiratory Oxygen Delivery Method: Room Air - Constitutional Appears: No Acute Distress - Eyes Eye Exam: Normal appearance - Respiratory Exam Respiratory Exam: Clear to Ausculation Bilateral - Cardiovascular Exam Cardiovascular Exam: Irregular Rhythm - GI/Abdominal Exam GI & Abdominal Exam: Soft - Neurological Exam Neurological Exam: Alert, Awake, Oriented x3 <Cierra ReyesZulmamis Knox - Last Filed: 04/23/17 18:24> COMMUNICATIONS SUPERVISOR Nurse Assessment - Vital Signs Vital Signs: Rapid Response Vital Sign Blood Pressure 87/61 Pulse Rate 105 Respiratory Rate 26 Temperature 98.7 F Oxygen Saturation 93 - Vital Signs at end of COMMUNICATIONS SUPERVISOR Vital Signs at end of COMMUNICATIONS SUPERVISOR: Rapid Response End Vital Sign Blood Pressure 95/64 Pulse Rate 95 Respiratory Rate 19 O2 Sat by Pulse Oximetry 99 Attending/Attestation - Attestation I have personally seen and examined this patient.: Yes I have fully participated in the care of the patient.: Yes I have reviewed all pertinent clinical information, including history, physical exam and plan: Yes Notes (Text): COMMUNICATIONS SUPERVISOR called because of hypotension Pt was having Phsyical therapy . Therapist noted pt to be diaphoretic and checked her BP and noted in was in the 60's systolic. Pt was brought back to her bed and on rpt BP check , she was back to her baseline w/c was 87/67. Pt received Lasix 20 mg IV x 1 this am and had metoprolol 100mg PO On exam , pt is awake, alert, oriented denies CP, no SOB no abd pain' She is on Xarelto no melena EKG : no change A/P : Hypotension ? Orthostatic - Rpt BP : 97/71 - discussed case with pt's PMD - DR Sonja Dickinson - we will continue to monitor pt in TCU -cont Metoprolol - CBC
[2017-04-23 15:37] LABS: HEMOGLOBIN 10.9 g/dL (12.0-16.0); MEAN CELL VOLUME 77.5 fl (81.0-99.0); MEAN CORPUSCULAR HEMOGLOBIN 23.5 pg (27.0-31.0); MEAN CORPUSCULAR HGB CONC 30.4 g/dL (33.0-37.0); RBC 4.64 Mil/uL (3.80-5.20); RED CELL DISTRIBUTION WIDTH 19.9 % (11.5-14.5); WHITE BLOOD COUNT 6.9 K/uL (4.8-10.8)
[2017-04-24] MEDS: Levothyroxine 75 MCG TAB PO SCH (05:43)
[2017-04-24 06:22] LABS: INR 2.4 (0.9-1.2); PROTHROMBIN TIME 26.8 Seconds (9.8-13.1)
[2017-04-24 06:54] LABS: ALB/GLOB RATIO 0.9 (1.0-2.1)
[2017-04-24] MEDS ORDERED: Phytonadione 10 mg/ml Inj (Adult) IV ONE (08:13)
--- NOTE | 2017-04-24 08:28 | CP.PCM.PN ---
Subjective - Date & Time of Evaluation Date of Evaluation: 04/24/17 Time of Evaluation: 08:00 - Subjective Subjective: Had a near syncopal episode due to hypotension (had received Lasix 20 mg due to vol over load) Now resting in bed, nearly flat, breathes at 16 BPM BP 104/70 mm Hg lying down /100/70 standing up HR 88 BPM, irreg No rales, no oedema over feet Extremities warm Labs: Hb10.9gms (Has received IV Fe) BUN/Creatinin 30/1.7 Mg (has not significantly changed luis felipe after addl IV fluid over the weekend) Electrolytes stable, normal INR up to 2.4 (IV vit K ordered) Liver profile approx same over last 2-[address] Giordano () re need to arrange A:V node ablation expidiciously He agrees to bring pt over to [facility] as soon as a bed is available Pt and the family agree. Objective - Vital Signs/Intake and Output Vital Signs (last 24 hours): Temp Pulse Resp BP Pulse Ox 97.2 F L 72 18 86/58 L 100 04/24/17 07:45 04/24/17 07:45 04/24/17 07:45 04/24/17 07:45 04/24/17 07:45 - Medications Medications: Current Medications Alprazolam (Xanax) 0.25 mg PO HS PRN PRN Reason: anxiety and insomnia Stop: 04/30/17 22:16 Last Admin: 04/23/17 23:15 Dose: 0.25 mg Atorvastatin Calcium (Lipitor) 20 mg PO HS [facility] Last Admin: 04/23/17 22:00 Dose: 20 mg Levothyroxine Sodium (Synthroid) 75 mcg PO DAILY@0630 [facility] Last Admin: 04/24/17 05:43 Dose: 75 mcg Metoprolol Tartrate (Lopressor) 100 mg PO Q12 [facility] Last Admin: 04/23/17 22:00 Dose: 100 mg Pantoprazole Sodium (Protonix Ec Tab) 20 mg PO DAILY [facility] Last Admin: 04/23/17 08:33 Dose: 20 mg Phytonadione (Vitamin K Inj) 10 mg IV ONCE ONE Stop: 04/24/17 08:14 Rivaroxaban (Xarelto) 15 mg PO QD5 [facility] PRN Reason: Protocol Last Admin: 04/23/17 16:08 Dose: 15 mg - Labs Labs: 04/23/17 15:26 04/24/17 05:45 PT 26.8 Seconds (9.8-13.1) H 04/24/17 05:45 INR 2.4 (0.9-1.2) H 04/24/17 05:45
[2017-04-24] MEDS: Pantoprazole 20 mg EC Tab PO SCH (08:40)
[2017-04-24] MEDS ORDERED: Phytonadione 10 MG in Sodium Chloride 0.9% 50 ML IV ONE (09:00)
[2017-04-24 17:05] VITALS: RESP 20
[2017-04-25] MEDS: Levothyroxine 75 MCG TAB PO SCH (05:38)
[2017-04-25 06:11] VITALS: PULSE 86
[2017-04-25 06:56] LABS: ALB/GLOB RATIO 0.9 (1.0-2.1); ALBUMIN 2.9 g/dL (3.5-5.0)
[2017-04-25 07:04] LABS: INR 2.5 (0.9-1.2); PROTHROMBIN TIME 27.7 Seconds (9.8-13.1)
--- NOTE | 2017-04-25 07:47 | CP.PCM.PN ---
Subjective - Date & Time of Evaluation Date of Evaluation: 04/25/17 Time of Evaluation: 07:30 - Subjective Subjective: Could not sleep well due to anticipation of AM transfer to [facility] and EP procedure Denies any dyspnoea Sitting OOB in a chair, appears fatigued but comfortable Resp rate 16-18 BPM HR 84 BPM, irreg BP 102/70 mm Hg JVP flat, no oedema over feet S3 gallop+, no rales Today's labs:BUN/Creatinin 28/ 1.6 Mg% Electrolytes normal INR still 2.7 (even ater IV Vit K yesterday) Garry 2.1mg and AST/ALT slightly lower. Pt being sent to [facility] for A:V node ablation and AICD replacement Have discussed pt hospital course so far with EP throgh this hospital stay. Objective - Vital Signs/Intake and Output Vital Signs (last 24 hours): Temp Pulse Resp BP Pulse Ox 97.0 F L 86 20 97/55 L 99 04/24/17 21:56 04/25/17 05:55 04/25/17 05:55 04/25/17 05:55 04/25/17 05:55 - Medications Medications: Current Medications Alprazolam (Xanax) 0.25 mg PO HS PRN PRN Reason: anxiety and insomnia Stop: 04/30/17 22:16 Last Admin: 04/24/17 22:58 Dose: 0.25 mg Atorvastatin Calcium (Lipitor) 20 mg PO HS [facility] Last Admin: 04/24/17 21:12 Dose: 20 mg Levothyroxine Sodium (Synthroid) 75 mcg PO DAILY@0630 [facility] Last Admin: 04/25/17 05:38 Dose: Not Given Metoprolol Tartrate (Lopressor) 100 mg PO Q12 [facility] Last Admin: 04/24/17 21:12 Dose: 100 mg Pantoprazole Sodium (Protonix Ec Tab) 20 mg PO DAILY [facility] Last Admin: 04/24/17 08:40 Dose: 20 mg Rivaroxaban (Xarelto) 15 mg PO QD5 [facility] PRN Reason: Protocol Last Admin: 04/24/17 16:39 Dose: 15 mg - Labs Labs: 04/23/17 15:26 04/25/17 05:45 PT 27.7 Seconds (9.8-13.1) H 04/25/17 05:45 INR 2.5 (0.9-1.2) H 04/25/17 05:45
--- NOTE | 2017-04-25 08:45 | CP.PCM.DIS ---
Provider - Provider Date of Admission: 04/20/17 15:38 Attending physician: Manny Dickinson MD Time Spent in preparation of Discharge (in minutes): 30 Hospital Course - Lab Results Lab Results: Most Recent Lab Values WBC 6.9 K/uL (4.8-10.8) D 04/23/17 15:26 RBC 4.64 Mil/uL (3.80-5.20) 04/23/17 15:26 Hgb 10.9 g/dL (12.0-16.0) L 04/23/17 15:26 Hct 36.0 % (34.0-47.0) 04/23/17 15:26 MCV 77.5 fl (81.0-99.0) L 04/23/17 15:26 MCH 23.5 pg (27.0-31.0) L 04/23/17 15:26 MCHC 30.4 g/dL (33.0-37.0) L 04/23/17 15:26 RDW 19.9 % (11.5-14.5) H 04/23/17 15:26 Plt Count 167 K/uL (130-400) 04/23/17 15:26 PT 27.7 Seconds (9.8-13.1) H 04/25/17 05:45 INR 2.5 (0.9-1.2) H 04/25/17 05:45 Sodium 138 mmol/l (132-148) 04/25/17 05:45 Potassium 3.7 MMOL/L (3.6-5.0) 04/25/17 05:45 Chloride 104 mmol/L (98-107) 04/25/17 05:45 Carbon Dioxide 22 mmol/L (22-30) 04/25/17 05:45 Anion Gap 16 (10-20) 04/25/17 05:45 BUN 28 mg/dl (7-17) H 04/25/17 05:45 Creatinine 1.6 mg/dl (0.7-1.2) H 04/25/17 05:45 Est GFR ( Amer) 38 04/25/17 05:45 Est GFR (Non-Af Amer) 31 04/25/17 05:45 POC Glucose (mg/dL) 121 mg/dL (65-110) H 04/23/17 15:16 Random Glucose 89 mg/dL (65-105) 04/25/17 05:45 Calcium 9.0 mg/dL (8.4-10.2) 04/25/17 05:45 Total Bilirubin 2.1 mg/dl (0.2-1.3) H 04/25/17 05:45 AST 56 U/L (14-36) H 04/25/17 05:45 ALT 70 U/L (9-52) H 04/25/17 05:45 Alkaline Phosphatase 152 U/L (38-126) H 04/25/17 05:45 Total Protein 6.2 G/DL (6.3-8.2) L 04/25/17 05:45 Albumin 2.9 g/dL (3.5-5.0) L 04/25/17 05:45 Globulin 3.3 gm/dL (2.2-3.9) 04/25/17 05:45 Albumin/Globulin Ratio 0.9 (1.0-2.1) L 04/25/17 05:45 - Hospital Course Hospital Course: this 82-year-old female was brought to the transitional care unit on 04/20/2016 and discharged on 2016. Her final diagnosis was congestive cardiac failure,, left ventricular chronic and systolic secondary to coronary artery disease with status post coronary bypass graft surgery. Chronic atrial fibrillation with status post AICD implant. Recent gastrointestinal bleeding secondary to peptic ulcer with iron deficiency anemia. 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 Stage III chronic kidney disease. History of dyslipidemia and hypertension.. The patient was recently hospitalized to the acute care section of this hospital with severe dehydration and received intravenous fluids with significant resolution of severe azotemia. She had also arrived with significantly elevated INR which promptly responded to intravenous vitamin K.. She had not been on warfarin for the last couple of years. The patient had been significantly hypotensive with her systolic blood pressure in the range of 80 to 100 mmHg. She had recently received intravenous iron and responded well raising her hemoglobin from 7.9 g to 10.9 g. Her BUN and creatinine at admission was 30 and 1.7 mg percent respectively on the day of her discharge it was 28 and 1.6 mg percent respectively with a GFR going from 29-31 mL per minute. Her total bilirubin erin as high as 2.7 mg percent on April 23 and by the time of her discharge was 2.1 mg percent while her AST and ALT which where 99 units and 78 units respectively on April 23 were down to 56 and 70 units respectively by the time of her discharge on . Her alkaline phosphatase also went down from 158 units on 23 of April to 152 units by the time of her discharge on . In spite of receiving intravenous vitamin K her INR remained at 2.5 by the time of her discharge. The patient did not demonstrate any overt volume overload but continued to have a systolic blood pressure in the range of 90 to 104 mmHg throughout herstay in the transitional care unit along with profound fatigue.. The patient had had a bi-V pacer. Because of her atrial fibrillation with a persistent tachycardia she could not avail herself of the benefit of a bi-V pacer. This was discussed with her director of development and marketing and the decision had been made to put her through a AV ablation procedure which was planned for months. Finally when she was stable it was decided that she should be transferred to [facility] for this procedure. Recently her AICD was found to be at the end of its life and plans had been maintained to replace this device as well which would be done as well. At the time of her discharge the patient was hemodynamically stable. Discharge Plan - Follow Up Plan Condition: GOOD Disposition: HOME/ ROUTINE Instructions: Heart Failure, Adult (DC), Preventing Falls, Generalized Weakness (DC) Referrals: Manny Dickinson MD [Staff Provider] - Herbert Andre MD [Medical Doctor] -
[2017-04-25 09:17] VITALS: BP 97/58; TEMP 97; O2SAT 98
== END 2017-04-25 09:25 | disposition short-term general hospital (02) | DRG 292 ==
LOC: H.TCU 15:38
PROVIDERS: ADMIT Internal Medicine Cardiovascular Disease; ATTEND Internal Medicine Cardiovascular Disease
PROC: F07M6FZ Therapeutic Exercise Treatment of Musculoskeletal System - Whole Body using Assistive, Adaptive, Supportive or Protective Equipment (ICD-10-PCS; principal; 2017-04-20)
PROC: F08Z4FZ Home Management Treatment using Assistive, Adaptive, Supportive or Protective Equipment (ICD-10-PCS; 2017-04-20)
DX: I13.0 Hypertensive heart and chronic kidney disease with heart failure and stage 1 through stage 4 chronic kidney disease, or unspecified chronic kidney disease (principal); D68.4 Acquired coagulation factor deficiency; N17.9 Acute kidney failure, unspecified; I95.9 Hypotension, unspecified; I48.2 Chronic atrial fibrillation; I34.0 Nonrheumatic mitral (valve) insufficiency; N18.3 Chronic kidney disease, stage 3 (moderate); I50.22 Chronic systolic (congestive) heart failure; E03.9 Hypothyroidism, unspecified; E78.00 Pure hypercholesterolemia, unspecified; E78.5 Hyperlipidemia, unspecified; I25.10 Atherosclerotic heart disease of native coronary artery without angina pectoris; I25.2 Old myocardial infarction; K21.9 Gastro-esophageal reflux disease without esophagitis; K27.9 Peptic ulcer, site unspecified, unspecified as acute or chronic, without hemorrhage or perforation; M81.0 Age-related osteoporosis without current pathological fracture; T46.2X5A Adverse effect of other antidysrhythmic drugs, initial encounter; Z79.01 Long term (current) use of anticoagulants; Z95.810 Presence of automatic (implantable) cardiac defibrillator; Z87.11 Personal history of peptic ulcer disease; Z87.891 Personal history of nicotine dependence; Z95.1 Presence of aortocoronary bypass graft; Z95.5 Presence of coronary angioplasty implant and graft; D50.9 Iron deficiency anemia, unspecified; F41.9 Anxiety disorder, unspecified; M19.90 Unspecified osteoarthritis, unspecified site; R79.89 Other specified abnormal findings of blood chemistry; R00.0 Tachycardia, unspecified